=== PATIENT | female | born 1960 | race Caucasian/White ===

== ENCOUNTER 2016-09-22 14:05 | Emergency (ER) | payer MEDICARE, MEDICAID ==
[2016-09-22] MEDS ORDERED: Ibuprofen TAB* 400 MG PO ONE (15:38)
[2016-09-22] MEDS ORDERED: Ketorolac INJ* 60 MG/2 ML VIAL IM ONE (15:43)
--- NOTE | 2016-09-22 16:39 | RAD ---
INDICATION: Trauma, low back pain. COMPARISON: There are no prior studies available for comparison. TECHNIQUE: 5 views of the lumbar spine were obtained including lateral, oblique, AP and a coned-down lateral view of the lumbar sacral junction. FINDINGS: There is a mild lumbar scoliosis convex toward the left side. The vertebra are otherwise in normal alignment. No fracture is seen. There is vacuum disc phenomena present at multiple levels. There is moderate to severe disc space narrowing and endplate spurring at all lumbar levels consistent with moderate to severe diffuse degenerative disc disease. IMPRESSION: 1. NO EVIDENCE FOR FRACTURE. 2. MULTILEVEL MODERATE TO SEVERE DIFFUSE DEGENERATIVE DISC DISEASE.
--- NOTE | 2016-09-22 16:41 | RAD ---
INDICATION: Sacrococcygeal injury. COMPARISON: There are no prior studies available for comparison. TECHNIQUE: 3 views of the sacrococcygeal spine were obtained. FINDINGS: The vertebra are in normal alignment. There is a faint radiolucent line extending through the lower segments of the coccyx on the lateral image possibly representing a nondisplaced fracture. IMPRESSION: POSSIBLE NONDISPLACED FRACTURE OF THE COCCYX.
--- NOTE | 2016-09-22 16:45 | RAD ---
INDICATION: Trauma, neck pain. COMPARISON: There are no prior studies available for comparison. TECHNIQUE: 3 views of the cervical spine were obtained including lateral, AP and open-mouth odontoid views. FINDINGS: The exam is limited. On the lateral images the C5, C6 and C7 vertebra project over the shoulders. The vertebra are in normal alignment. No prevertebral soft tissue swelling or fracture is seen. There is moderate degenerative disc disease at the C5-C6 level. IMPRESSION: LIMITED STUDY THE C5-C7 VERTEBRA ARE PARTIALLY OBSCURED BY THE PATIENT'S SHOULDERS. IF THIS IS AN AREA OF INTEREST CONSIDER CT IMAGING OF THE CERVICAL SPINE. NO FRACTURE IS SEEN.
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
[2016-09-22 17:45] VITALS: BP 200/106
== END 2016-09-22 17:43 | disposition home or self-care (01) ==
LOC: ED 14:05
DX: S39.012A Strain of muscle, fascia and tendon of lower back, initial encounter (principal); S32.2XXA Fracture of coccyx, initial encounter for closed fracture; Z88.1 Allergy status to other antibiotic agents; Z88.5 Allergy status to narcotic agent; Z88.0 Allergy status to penicillin; W01.0XXA Fall on same level from slipping, tripping and stumbling without subsequent striking against object, initial encounter; Y92.510 Bank as the place of occurrence of the external cause
CPT/HCPCS: 72040; 72110; 72220; 96372; 99282; J1885

== ENCOUNTER 2017-05-21 18:10 | Emergency (ER) | payer MEDICARE, MEDICAID ==
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
== END 2017-05-21 20:16 | disposition home or self-care (01) ==
LOC: UCEAST 18:10
DX: H10.9 Unspecified conjunctivitis (principal); Z88.8 Allergy status to other drugs, medicaments and biological substances; Z88.5 Allergy status to narcotic agent; I10 Essential (primary) hypertension; Z87.891 Personal history of nicotine dependence; Z88.1 Allergy status to other antibiotic agents; Z88.6 Allergy status to analgesic agent
CPT/HCPCS: 99212; G0463

== ENCOUNTER 2017-07-16 12:51 | Emergency (ER) | payer MEDICARE, MEDICAID ==
[2017-07-16 15:01] VITALS: BP 114/82
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
== END 2017-07-16 15:56 | disposition home or self-care (01) ==
LOC: UCEAST 12:51
DX: J20.9 Acute bronchitis, unspecified (principal); I10 Essential (primary) hypertension; Z88.6 Allergy status to analgesic agent; Z88.1 Allergy status to other antibiotic agents; Z88.5 Allergy status to narcotic agent; Z88.8 Allergy status to other drugs, medicaments and biological substances; Z91.048 Other nonmedicinal substance allergy status; Z87.891 Personal history of nicotine dependence
CPT/HCPCS: 87502; 99212; G0463

== ENCOUNTER 2017-07-29 20:59 | Emergency (ER) | payer MEDICARE, MEDICAID ==
[2017-07-30] MEDS ORDERED: Tetan/Diph/Pertus SYR(Tdap)* 0.5 ML SYR(BOOSTRIX) use SYR IM ONE (00:10)
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
[2017-07-30 01:51] VITALS: BP 136/78
== END 2017-07-30 00:45 | disposition home or self-care (01) ==
LOC: ED 20:59
DX: S61.011A Laceration without foreign body of right thumb without damage to nail, initial encounter (principal); W26.8XXA Contact with other sharp object(s), not elsewhere classified, initial encounter; Y93.G3 Activity, cooking and baking; Y92.9 Unspecified place or not applicable; Z23 Encounter for immunization; Z87.891 Personal history of nicotine dependence; Z88.3 Allergy status to other anti-infective agents; Z88.5 Allergy status to narcotic agent; Z88.8 Allergy status to other drugs, medicaments and biological substances
CPT/HCPCS: 90471; 90715; 99282

== ENCOUNTER 2018-08-15 15:39 | Emergency (ER) | payer MEDICARE, MEDICAID ==
[2018-08-15 16:12] VITALS: BP 189/91
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
== END 2018-08-15 17:03 | disposition home or self-care (01) ==
LOC: UCEAST 15:39
DX: R42 Dizziness and giddiness (principal); H65.92 Unspecified nonsuppurative otitis media, left ear; I10 Essential (primary) hypertension; Z88.6 Allergy status to analgesic agent; Z88.1 Allergy status to other antibiotic agents; Z91.030 Bee allergy status; Z88.5 Allergy status to narcotic agent; Z88.8 Allergy status to other drugs, medicaments and biological substances; Z91.09 Other allergy status, other than to drugs and biological substances; Z87.891 Personal history of nicotine dependence
CPT/HCPCS: 99212; G0463

== ENCOUNTER 2018-10-17 17:06 | Emergency (ER) | payer MEDICARE, MEDICAID ==
[2018-10-17 17:19] VITALS: BP 157/97
[2018-10-17] MEDS ORDERED: Fluorescein Sodium TOPICAL* 1 MG TEST STRIP OPHTHALMIC ONE (18:20)
[2018-10-17] MEDS ORDERED: Tetracaine 0.5% OPTH.SOL 4 ML* 1 DROP BTL BOTH EYES ONE (18:20)
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
== END 2018-10-17 19:10 | disposition home or self-care (01) ==
LOC: UCEAST 17:06
DX: H10.33 Unspecified acute conjunctivitis, bilateral (principal); B37.2 Candidiasis of skin and nail; I10 Essential (primary) hypertension; F32.9 Major depressive disorder, single episode, unspecified; Z88.1 Allergy status to other antibiotic agents; Z91.030 Bee allergy status; Z88.5 Allergy status to narcotic agent; Z88.8 Allergy status to other drugs, medicaments and biological substances; Z91.048 Other nonmedicinal substance allergy status; Z87.891 Personal history of nicotine dependence
CPT/HCPCS: 99213; A9270-GY; G0463

== ENCOUNTER 2018-10-28 17:51 | Observation (INO) | payer MEDICARE, MEDICAID ==
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
[2018-10-28] MEDS ORDERED: Furosemide IV* 10 MG/ML VIAL (40 MG) IV SLOW PU ONE (18:36)
[2018-10-28 18:50] LABS: ABS Basophils 0.1 10^3/ul (0-0.2); ABS Eosinophils 0.2 10^3/ul (0-0.6); ABS Lymphocytes 1.4 10^3/ul (1.0-4.8); ABS Monocytes 0.7 10^3/ul (0-0.8); ABS Neutrophils 5.2 10^3/ul (1.5-7.7); ABS Nucleated RBC 0 10^3/ul; Eosinophil % 3.2 %; Hematocrit 43 % (33-41); Hemoglobin 13.5 g/dL (12.0-16.0); Lymphocyte % 18.6 %; Mean Corpuscular HGB Conc 32 g/dL (31-36); Mean Corpuscular Hemoglobin 27 pg (27-31); Mean Corpuscular Volume 87 fL (80-97); Nucleated Red Blood Cells % 0.1; Platelet Count 250 10^3/uL (150-450); Red Blood Count 4.91 10^6 /uL (3.70-4.87); Red Cell Distribution Width 15 % (10.5-15); White Blood Count 7.7 10^3/uL (3.5-10.8)
[2018-10-28 19:04] LABS: ALT 21 U/L (7-52); AST 22 U/L (13-39); Albumin/Globulin Ratio 1.7 (1-3); Alkaline Phosphatase 100 U/L (34-104); Anion Gap 5 mmol/L (2-11); BUN/Creatinine Ratio 22.2 (8-20); Blood Urea Nitrogen 16 mg/dL (6-24); CO2 Carbon Dioxide 36 mmol/L (22-32); Calcium 9.2 mg/dL (8.6-10.3); Chloride 104 mmol/L (101-111); EGFR African American 101.4 (>60); EGFR Non-African American 83.8 (>60); Globulin 2.3 g/dL (2-4); Glucose 130 mg/dL (70-100); Potassium 3.6 mmol/L (3.5-5.0); Sodium 145 mmol/L (135-145); Total Protein 6.3 g/dL (6.4-8.9)
[2018-10-28 19:19] LABS: Activated Partial Thrombo Time 29.9 seconds (26.0-36.3); INR 1.27 (0.82-1.09)
[2018-10-28] MEDS ORDERED: hydrALAZINE IV* 20 MG/ML VIAL IV SLOW PU ONE (19:30)
[2018-10-28] MEDS ORDERED: Albuterol 2.5 MG/3 ML NEB.SOL* (0.083%) INH ONE (19:41)
[2018-10-28] MEDS ORDERED: methylPREDNISolone 125 MG* 2 ML VIAL IV ONE (19:41)
[2018-10-28] MEDS ORDERED: Furosemide IV* 10 MG/ML VIAL (40 MG) IV ONE (19:46)
[2018-10-28] MEDS ORDERED: Iodixanol* (CONTRAST) 320 MG/ML 100 ML SDV IV ONE (20:02)
[2018-10-28 20:41] LABS: C Reactive Protein 11.21 mg/L (<8.01)
[2018-10-28 21:11] LABS: Troponin I 0.01 ng/mL (<0.04)
[2018-10-28] MEDS ORDERED: Metoprolol Succinate XL TAB* 200 MG TAB.XL PO ONE (22:06)
[2018-10-28] MEDS ORDERED: Metoprolol Succinate XL TAB* 100 MG PO ONE (22:15)
[2018-10-28] MEDS ORDERED: Al Hydrox/Mg Hydrox/Simet LIQ* 30 ML UDC PO PRN (23:06)
[2018-10-28] MEDS ORDERED: Acetaminophen TAB* 325 MG PO PRN (23:06)
[2018-10-28] MEDS ORDERED: Albuterol 2.5 MG/3 ML NEB.SOL* (0.083%) INH PRN (23:06)
[2018-10-28] MEDS ORDERED: Senna TAB PO PRN (23:06)
[2018-10-28] MEDS ORDERED: Ondansetron INJ* 2 MG/ML VIAL IV PRN (23:06)
[2018-10-28] MEDS ORDERED: Docusate CAP* 100 MG PO PRN (23:06)
[2018-10-28] MEDS ORDERED: Ondansetron TAB* 4 MG PO PRN (23:09)
[2018-10-28] MEDS ORDERED: tiZANidine TAB* 2 MG PO PRN (23:09)
[2018-10-28] MEDS ORDERED: HYDROcodone/ACETAMIN 5-325 MG* 1 TAB PO PRN (23:09)
[2018-10-28] MEDS ORDERED: Cetirizine* 10 MG TAB PO PRN (23:12)
[2018-10-28] MEDS ORDERED: Albuterol HFA INHALER* 8 gm MDI INH PRN (23:13)
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
[2018-10-29] MEDS ORDERED: hydrALAZINE IV* 20 MG/ML VIAL IV SLOW PU PRN (04:06)
[2018-10-29] MEDS: Heparin VIAL(*) 5000 UNITS/ML VIAL (FIVE THOUSAND) SUBCUT SCH ×3 (04:20→22:13)
[2018-10-29 07:05] LABS: BUN/Creatinine Ratio 20.6 (8-20); Calcium 9.4 mg/dL (8.6-10.3); EGFR African American 108.3 (>60); EGFR Non-African American 89.5 (>60); Magnesium 2.1 mg/dL (1.9-2.7); Potassium 3.6 mmol/L (3.5-5.0)
[2018-10-29] MEDS: Mometasone/Formoter 200/5 MDI INH SCH ×2 (08:27→19:38)
[2018-10-29] MEDS: Losartan TAB* 25 MG PO SCH (08:42)
[2018-10-29] MEDS: Spironolactone TAB* 25 MG PO SCH (08:42)
[2018-10-29] MEDS: FLUoxetine CAP* 20 MG PO SCH (08:42)
[2018-10-29] MEDS: Sucralfate TAB* 1 GM PO SCH ×5 (08:42→22:13)
[2018-10-29] MEDS: Pantoprazole TAB * 40 MG TAB PO SCH (08:42)
[2018-10-29] MEDS: Metoprolol Tartrate TAB* 100 MG TAB PO SCH ×3 (08:43→22:13)
[2018-10-29] MEDS: predniSONE TAB* 20 MG PO SCH (08:43)
[2018-10-29] MEDS: Gabapentin CAP(*) 300 MG PO SCH ×3 (08:44→22:12)
[2018-10-29] MEDS: Diclofenac Sodium EC TAB* 25 MG PO SCH ×3 (08:45→22:12)
[2018-10-29] MEDS: Fluticasone NASAL SPRAY 50MCG* 16 gm SPRAY BTL BOTH NARES SCH (08:46)
[2018-10-29] MEDS: Clotrimazole 1% CREAM* 45 GM TOPICAL SCH ×3 (08:46→22:12)
[2018-10-29] MEDS: Mupirocin 2% CREAM* 15 GM TOPICAL SCH ×2 (08:47→22:25)
[2018-10-29] MEDS ORDERED: Clindamycin 1% TOPICAL(NF) SCH (09:00)
[2018-10-29] MEDS ORDERED: Econazole 1% CREAM (NF) 1 TUBE TOPICAL SCH (09:00)
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
[2018-10-29] MEDS ORDERED: Mometasone 220 MCG MDI INH SCH (18:00)
[2018-10-29] MEDS: Gabapentin CAP(*) 100 MG PO SCH ×2 (19:20→22:12)
[2018-10-29] MEDS: Amitriptyline TAB* 10 MG PO SCH ×2 (19:22→22:12)
--- NOTE | 2018-10-29 22:14 | PN ---
Subjective Date of Service: 10/29/18 Interval History: Pt admitted overnight due to hypoxia. Seems patient actually should be on home O2 always, but would only wear it at night but also broke her concentrator recently. Wishes to go home but discussed we need to have home O2 set up before discharge. Pt has close f/u with wound care in 2 days - she would like to defer cellulitis treatment to them as she thinks her legs appear better than before. Family History: Unchanged from Admission Social History: Unchanged from Admission Past Medical History: Unchanged from Admission Objective Active Medications: Acetaminophen (Tylenol Tab*) 650 mg PO Q4H PRN PRN Reason: FEVER/PAIN Hydrocodone Bitart/Acetaminophen ([place] 5-325 Tab*) 1 tab PO TID PRN PRN Reason: PAIN Al Hydrox/Mg Hydrox/Simethicone (Maalox Plus*) 30 ml PO Q6H PRN PRN Reason: INDIGESTION Albuterol (Ventolin 2.5 Mg/3 Ml Neb.Cherelle*) 2.5 mg INH [id number] AWAKE PRN PRN Reason: sob/wheezing Albuterol (Ventolin Hfa Inhaler*) 2 puff INH Q4H PRN PRN Reason: SOB/WHEEZING Amitriptyline HCl (Elavil Tab*) 30 mg PO BEDTIME [facility] Cetirizine HCl (Zyrtec*) 10 mg PO QPM PRN PRN Reason: ALLERGIES Clotrimazole (Clotrimazole 1%*) 1 applic TOPICAL BID [facility] Last Admin: 10/29/18 08:46 Dose: 1 applic Diclofenac Sodium (Voltaren Ec Tab*) 75 mg PO BID [facility] Last Admin: 10/29/18 08:45 Dose: 75 mg Docusate Sodium (Colace Cap*) 100 mg PO BID PRN PRN Reason: CONSTIPATION Fluoxetine HCl (Prozac Cap*) 20 mg PO DAILY [facility] Last Admin: 10/29/18 08:42 Dose: 20 mg Fluticasone Propionate (Flonase Nasal [place] 50mcg*) 2 spray BOTH NARES DAILY [facility] Last Admin: 10/29/18 08:46 Dose: 2 spray Gabapentin (Neurontin Cap(*)) 200 mg PO BEDTIME [facility] Gabapentin (Neurontin Cap(*)) 300 mg PO BID [facility] Last Admin: 10/29/18 08:44 Dose: 300 mg Heparin Sodium (Porcine) (Heparin Vial(*)) 5,000 units SUBCUT Q8HR [facility] Last Admin: 10/29/18 12:55 Dose: Not Given Hydralazine HCl (Apresoline Iv*) 10 mg IV SLOW PU Q6H PRN PRN Reason: BLOOD PRESSURE Last Admin: 10/29/18 04:20 Dose: 10 mg Losartan Potassium (Cozaar Tab*) 100 mg PO DAILY [facility] Last Admin: 10/29/18 08:42 Dose: 100 mg Metoprolol Tartrate (Lopressor Tab*) 200 mg PO BID [facility] Last Admin: 10/29/18 08:43 Dose: 200 mg Mometasone Furoate/Formoterol Fumar (Dulera 200/5 Mdi*) 2 puff INH BID [facility] Last Admin: 10/29/18 19:38 Dose: Not Given Mupirocin (Bactroban 2% Cream*) 1 applic TOPICAL BID [facility] Last Admin: 10/29/18 08:47 Dose: Not Given Ondansetron HCl (Zofran Inj*) 4 mg IV Q4H PRN PRN Reason: NAUSEA/VOMITING Ondansetron HCl (Zofran Tab*) 8 mg PO Q8H PRN PRN Reason: NAUSEA Pantoprazole Sodium (Protonix Tab*) 40 mg PO DAILY [facility] Last Admin: 10/29/18 08:42 Dose: 40 mg Prednisone (Deltasone Tab*) 40 mg PO DAILY [facility] Last Admin: 10/29/18 08:43 Dose: 40 mg Senna (Senokot Tab*) 1 tab PO BID PRN PRN Reason: CONSTIPATION Spironolactone (Aldactone Tab*) 25 mg PO DAILY [facility] Last Admin: 10/29/18 08:42 Dose: 25 mg Sucralfate (Carafate*) 1 gm PO QID [facility] Last Admin: 10/29/18 16:38 Dose: 1 gm Tizanidine HCl (Zanaflex Tab*) 2 mg PO BEDTIME PRN PRN Reason: SPASMS Vital Signs - 8 hr 10/29/18 10/29/18 10/29/18 15:16 19:15 19:45 Temperature 98.4 F 98.7 F Pulse Rate 73 74 Respiratory 16 16 16 Rate Blood Pressure 170/77 151/79 (mmHg) O2 Sat by Pulse 93 96 Oximetry Oxygen Devices in Use Now: Nasal Cannula Appearance: well appearing obese woman in NAD, no increased WOB Ears/Nose/Mouth/Throat: Clear Oropharnyx, Mucous Membranes Moist Neck: No Thyroid Enlargement, Masses Cardiovascular: RRR Abdominal: NL Sounds; No Tenderness; No Distention Extremities: - - b/l LE edema with circumferential erythema and some scabs, not hot or tender; some skin breakdown of posterior RLE which previously had [place] Result Diagrams: 10/28/18 01:30 10/29/18 06:36 Assess/Plan/Problems-Billing Assessment: 58W with morbid obesity, asthma/copd, JOSE LUIS, on O2 at home, who presents with [place]. Found with hypoxia and admitted for supplemental O2 and possible COPD/ asthma exacerbation. Now seems more likely that pt at baseline and needs home O2 to be set up again given that her home device recently broke. - Patient Problems (1) COPD exacerbation Comment: continue prednisone burst and nebs will need home O2 rearranged (2) JOSE LUIS (obstructive sleep apnea) Comment: cannot tolerate CPAP (3) HTN (hypertension) Comment: cont home metoprolol, spironolactone, losartan
[2018-10-30] MEDS: Heparin VIAL(*) 5000 UNITS/ML VIAL (FIVE THOUSAND) SUBCUT SCH ×2 (04:23→14:44)
[2018-10-30] MEDS: Mometasone/Formoter 200/5 MDI INH SCH ×2 (08:56→19:52)
[2018-10-30] MEDS: predniSONE TAB* 20 MG PO SCH (09:39)
[2018-10-30] MEDS: Losartan TAB* 25 MG PO SCH (09:39)
[2018-10-30] MEDS: Gabapentin CAP(*) 300 MG PO SCH (09:39)
[2018-10-30] MEDS: Spironolactone TAB* 25 MG PO SCH (09:40)
[2018-10-30] MEDS: Sucralfate TAB* 1 GM PO SCH (09:40)
[2018-10-30] MEDS: FLUoxetine CAP* 20 MG PO SCH (09:40)
[2018-10-30] MEDS: Metoprolol Tartrate TAB* 100 MG TAB PO SCH (09:40)
[2018-10-30] MEDS: Diclofenac Sodium EC TAB* 25 MG PO SCH (09:41)
[2018-10-30] MEDS: Pantoprazole TAB * 40 MG TAB PO SCH (09:41)
[2018-10-30] MEDS: Fluticasone NASAL SPRAY 50MCG* 16 gm SPRAY BTL BOTH NARES SCH (09:41)
[2018-10-30] MEDS: Clotrimazole 1% CREAM* 45 GM TOPICAL SCH (09:46)
[2018-10-30] MEDS ORDERED: Sucralfate TAB* 1 GM PO SCH (16:00)
[2018-10-30 16:13] VITALS: BP 142/85
[2018-10-30] MEDS: Mupirocin 2% CREAM* 15 GM TOPICAL SCH (18:19)
--- NOTE | 2018-10-31 00:43 | DS ---
CC: Danuta Walker MD* DISCHARGE SUMMARY: DATE OF ADMISSION: 10/28/18 DATE OF DISCHARGE: 10/30/18 PRIMARY CARE PHYSICIAN: Danuta Walker MD. Wound care and [facility] Home Visit Wound Care. DISPOSITION: To home. CONDITION: Improved. PRIMARY DIAGNOSIS: Chronic obstructive pulmonary disease exacerbation. SECONDARY DIAGNOSES: 1. Asthma. 2. Obstructive sleep apnea, unable to tolerate continuous positive airway pressure. 3. Hypertension. 4. Seasonal allergies. 5. Chronic pain. 6. Depression. 7. Degenerative disc disease. 8. Lower extremity edema with wounds after knox. 9. Fibromyalgia. CONSULTS: Wound Care. DISCHARGE MEDICATIONS: 1. Prednisone 40 mg daily for 2 more days. 2. Albuterol 2 puffs every 4 hours as needed for shortness of breath. 3. Amitriptyline 30 mg nightly. 4. Cetirizine 10 mg nightly. 5. Diclofenac 75 mg p.o. twice a day as needed for pain. 6. Docusate 100 mg twice a day as needed for constipation. 7. Fluoxetine 20 mg daily. 8. Flonase nasal spray 2 sprays daily. 9. Gabapentin 200 mg t.i.d. 10. Spironolactone 25 mg p.o. daily. 11. Sucralfate 1 g p.o. q.i.d. 12. Telmisartan 80 mg daily. 13. Hydroxyzine 25 mg p.o. every 6 hours as needed for anxiety. 14. Advair 1 puff inhaled twice a day. 15. Metoprolol tartrate 200 mg b.i.d. 16. [place] 5/325 1 tab 3 times a day as needed for pain. HISTORY OF PRESENT ILLNESS: A 58-year-old woman with morbid obesity, asthma/ COPD with smoking history, not active, always stay on home nocturnal O2 unable to tolerate CPAP who presents to the emergency room with worsening abdominal distention with constipation. She states this has been a progressive issue over the last few weeks and that it is related to her irritable bowel syndrome with predominant constipation features and she feels that this is causing her to be more short of breath. She saw her PCP on the morning of presentation and her oxygen saturation was 84, so she was sent to the emergency room for further evaluation. The patient denies chest pain or cough and she gets short of breath when she exerts herself which is at baseline. She has had no recent weight changes. She has chronic lower extremity swelling with a chronic wound on the back of her right leg that she sees a wound nurse for and she has an Unna boot. She denies upper respiratory symptoms. HOSPITAL COURSE: It was noted that her lowest O2 sat in the emergency room was 88%, but after evaluation and plan for discharge by the ER, she was noted to have oxygen saturation reduce to the lower 80s. So, she was admitted for observation and supplemental oxygen. In the ER, she also was given neb treatment, Lasix IV 40 mg, hydralazine, Solu-Medrol and Toprol 200 mg. The patient states she has issues with white-coat hypertension. She also notes that she has not been adherent to her home oxygenation, so it is thought that it was likely that the patient had needed home O2 at baseline and that this hypoxia observed in the emergency room was not new for her. She states that her home oxygen concentrator is broken, so she remained admitted until these services could be reinstituted at home. She was also seen by Wound Care and there was concern for cellulitis, although the patient did not report tenderness or increasing erythema, and she preferred to follow up the possibility of infection with her wound nurse who knows her best and she noted that she has an appointment with visiting wound nurse for the day after discharge. The patient's constipation also improved while admitted to the hospital. On the day of discharge, she reports that she is anxiously awaiting her discharge, so that she can return home. She states that she is at her baseline, feels well, denies 10- point review of systems. PHYSICAL EXAMINATION: She is afebrile, heart rates in the 70s, blood pressure is 142/85, respiratory rate 12, oxygen saturation 96% on 3 L. In general, well - appearing woman, in no acute distress, picking out items from her lunch menu, breathing comfortably. Neck: Unable to appreciate JVD given body habitus. Cardiovascular: Regular rate and rhythm. No murmurs, gallops, or rubs. Lungs : Clear to auscultation bilaterally. Abdomen: Soft, nontender, nondistended. Extremities: With bilateral 1+ pitting edema to mid chins with bilateral circumferential erythema with scabbing. No pus or fluctuance and no tenderness or increased temperature bilaterally. PERTINENT STUDIES AND LABS: Chest x-ray; marked cardiomegaly, mild interstitial prominence may represent vascular congestion. Chest, abdomen and pelvis CTA: With minimum bibasilar atelectatic change or scarring. Lungs and pleural spaces are otherwise clear. Mild mediastinal lymphadenopathy and cardiomegaly without visible acute pulmonary embolism, but limited evaluation of subsegmental branches of the pulmonary arteries because of respiratory motion artifact. No aortic dissection. Noted an incompletely characterized left adrenal mass, measuring 3.3 x 2.3 cm. Nonobstructive left nephrolithiasis including a 5 mm calculus in the left renal collecting system and a 5 mm calculus in the left renal pelvis. There is colonic diverticulosis without evidence for acute diverticulitis. Lower extremity venous Doppler study limited exam due to large body habitus and magnitude of lower extremity edema without gross evidence for right or left lower extremity DVT through the popliteal veins. There was a 5.1 x 2.4 x 0.8 cm left popliteal cyst. DISCHARGE PLAN: The patient is to continue all her home medications as before with addition of 2 additional days of prednisone for possible COPD asthma exacerbation. She is to follow up closely with her primary care physician also with her wound care visiting nurse. She is to resume a healthy diet low in processed foods and a level of activity as tolerated. The patient is to follow up noted CT abdomen, pelvis, chest findings, notably lymphadenopathy and adrenal mass with her primary care physician. She is to remain on home oxygen with recording of her measured oxygen saturations to manage this with her PCP and likely will need referral to postdoctoral research fellow. TIME SPENT: Approximately 60 minutes spent on discharge of this patient, more than half of which was spent with care coordination at bedside for interview and exam. [id number]/[facility] #: [id number] LISE
== END 2018-10-30 20:30 | disposition home or self-care (01) ==
LOC: ED 17:51 → MED 10-29 00:26
PROVIDERS: ADMIT Pediatrics; ATTEND Internal Medicine
DX: J44.1 Chronic obstructive pulmonary disease with (acute) exacerbation (principal); J45.909 Unspecified asthma, uncomplicated; G47.33 Obstructive sleep apnea (adult) (pediatric); I10 Essential (primary) hypertension; G89.29 Other chronic pain; F32.9 Major depressive disorder, single episode, unspecified; M51.34 Other intervertebral disc degeneration, thoracic region; R60.0 Localized edema; M79.7 Fibromyalgia; Z79.899 Other long term (current) drug therapy; E66.01 Morbid (severe) obesity due to excess calories; Z87.891 Personal history of nicotine dependence; K58.9 Irritable bowel syndrome, unspecified; Z68.43 Body mass index [BMI] 50.0-59.9, adult; Z88.6 Allergy status to analgesic agent
CPT/HCPCS: 36415; 71045; 71275; 74177; 80048; 80053; 82803; 83605; 83735; 83880; 84484; 85025; 85379; 85610; 85730; 86140; 93005; 93970; 94640; 96374; 96375; 96376; 99284; A9270-GY; G0378; J0360; J1940; J2930; J7512; Q9967

== ENCOUNTER 2020-08-24 05:35 | Observation (INO) ==
[2020-08-24] MEDS ORDERED: NS 0.9% 1000 ml BAG 1,000 ML IV ONE ×2 (06:02→08:03)
[2020-08-24] MEDS ORDERED: Prochlorperazine 5 mg/ml 2 ml VIAL (10 mg) IV ONE (06:02)
[2020-08-24 07:11] LABS: ABS Lymphocytes 0.8 10^3/ul (1.0-4.8); ABS Monocytes 0.2 10^3/ul (0-0.8); ABS Neutrophils 7.1 10^3/ul (1.5-7.7); Eosinophil % 0.1 %; Hematocrit 43 % (35-47); Hemoglobin 14.2 g/dL (12.0-16.0); Lymphocyte % 9.4 %; Mean Corpuscular HGB Conc 33 g/dL (31-36); Mean Corpuscular Hemoglobin 31 pg (27-31); Mean Corpuscular Volume 93 fL (80-97); Platelet Count 268 10^3/uL (150-450); Red Blood Count 4.58 10^6 /uL (3.70-4.87); Red Cell Distribution Width 14 % (10-15)
[2020-08-24 07:23] LABS: Albumin 4.4 g/dL (3.2-5.2); Calcium 10.2 mg/dL (8.6-10.3); Potassium 4.1 mmol/L (3.5-5.0); Total Bilirubin 0.7 mg/dL (0.2-1.0)
[2020-08-24 07:29] LABS: Albumin/Globulin Ratio 1.6 (1-3); BUN/Creatinine Ratio 29.5 (8-20); C Reactive Protein 2.72 mg/L (<8.01); EGFR African American 60.5 (>60); Globulin 2.8 g/dL (2-4); Total Protein 7.2 g/dL (6.4-8.9); Troponin I 0.01 ng/mL (<0.03)
[2020-08-24] MEDS ORDERED: Iodixanol (CONTRAST) 320 MG/ML 100 ML SDV IV ONE (07:42)
[2020-08-24] MEDS ORDERED: Piperacillin/Tazobac ADVAN 3.375 GM in NS 0.9% 100 ml BAG 100 ML IV ONE (07:56)
[2020-08-24] MEDS ORDERED: NS 0.9% IV ONE (08:15)
[2020-08-24 09:51] LABS: Urine Appearance Clear; Urine Bilirubin Negative (Negative); Urine Blood Negative (Negative); Urine Color Yellow; Urine Glucose 1+(50 mg/dL) (Negative); Urine Ketones Trace (Negative); Urine Nitrite Negative (Negative); Urine Protein 1+(30 mg/dL) (Negative); Urine Urobilinogen Negative (Negative)
[2020-08-24 09:54] LABS: Urine Bacteria Absent (Absent); Urine Red Blood Cell 1+(3-5/hpf) (Absent); Urine Squamous Epithelial Cell Present (Absent); Urine White Blood Cell Absent (Absent)
[2020-08-24] MEDS ORDERED: Ondansetron 4 mg VIAL 2 MG/ML 2 ml VIAL IV PRN (11:00)
[2020-08-24] MEDS ORDERED: cefTRIAXone 1 gm/50 mL NS BAG 1 GM/50 ML BAG IVPB SCH (11:00)
[2020-08-24] MEDS ORDERED: Prochlorperazine 5 mg/ml 2 ml VIAL (10 mg) IV PRN (11:06)
[2020-08-24] MEDS ORDERED: Albuterol HFA INHALER 8 gm MDI INH PRN (11:07)
[2020-08-24] MEDS: Metoprolol Succinate XL 200 mg TAB PO SCH ×2 (11:52→20:32)
[2020-08-24] MEDS: cefTRIAXone 1 gm/50 mL NS BAG 1 GM/50 ML BAG IVPB SCH (11:53)
[2020-08-24] MEDS: metroNIDAZOLE IV 500 MG/100ML 500 MG/100 ML BAG IVPB SCH ×2 (11:59→20:32)
[2020-08-24] MEDS ORDERED: Lactated Ringers 1000 ml BAG 1,000 ML IV SCH (12:00)
[2020-08-24] MEDS: Enoxaparin 40 MG/0.4 ML SYR SUBCUT SCH ×2 (13:59→14:05)
[2020-08-24] MEDS: HYDROcodone/ACETAMIN 5/325 mg TAB PO SCH ×2 (15:31→20:32)
[2020-08-25] MEDS ORDERED: Lactated Ringers 1000 ml BAG 1,000 ML IV ONE (00:11)
[2020-08-25 03:42] LABS: ABS Basophils 0.1 10^3/ul (0-0.2); ABS Eosinophils 0.1 10^3/ul (0-0.6); ABS Lymphocytes 1.7 10^3/ul (1.0-4.8); ABS Monocytes 1.1 10^3/ul (0-0.8); ABS Neutrophils 6.7 10^3/ul (1.5-7.7); Eosinophil % 0.6 %; Hematocrit 37 % (35-47); Hemoglobin 12.3 g/dL (12.0-16.0); Lymphocyte % 17.8 %; Mean Corpuscular HGB Conc 33 g/dL (31-36); Mean Corpuscular Hemoglobin 31 pg (27-31); Mean Corpuscular Volume 94 fL (80-97); Mean Platelet Volume 7.3 fL (7.4-10.4); Platelet Count 223 10^3/uL (150-450); Red Blood Count 3.95 10^6 /uL (3.70-4.87); Red Cell Distribution Width 15 % (10-15); White Blood Count 9.6 10^3/uL (3.5-10.8)
[2020-08-25] MEDS: metroNIDAZOLE IV 500 MG/100ML 500 MG/100 ML BAG IVPB SCH ×2 (04:04→11:29)
[2020-08-25 04:05] LABS: Albumin 3.6 g/dL (3.2-5.2); Albumin/Globulin Ratio 1.6 (1-3); BUN/Creatinine Ratio 25.9 (8-20); Calcium 9.2 mg/dL (8.6-10.3); EGFR African American 60.5 (>60); Globulin 2.3 g/dL (2-4); Magnesium 1.9 mg/dL (1.9-2.7); Potassium 4.2 mmol/L (3.5-5.0); Total Bilirubin 0.6 mg/dL (0.2-1.0); Total Protein 5.9 g/dL (6.4-8.9)
[2020-08-25] MEDS: HYDROcodone/ACETAMIN 5/325 mg TAB PO SCH ×2 (08:42→13:12)
[2020-08-25] MEDS: Metoprolol Succinate XL 200 mg TAB PO SCH (08:43)
[2020-08-25] MEDS ORDERED: SPIRIVA Respimat (tiotropium) 2.5 mcg/inh Inhaler INH SCH (09:00)
[2020-08-25] MEDS: Enoxaparin 40 MG/0.4 ML SYR SUBCUT SCH (10:57)
[2020-08-25] MEDS: cefTRIAXone 1 gm/50 mL NS BAG 1 GM/50 ML BAG IVPB SCH (13:06)
[2020-08-25 14:10] VITALS: BP 117/62
== END 2020-08-25 15:00 | disposition home or self-care (01) ==
LOC: ED 05:35 → MED 05:35 → MEDTELE 08-25 14:03
PROVIDERS: ADMIT Internal Medicine; ATTEND Internal Medicine

== ENCOUNTER 2021-06-07 06:31 | Inpatient (IN) ==
[2021-06-07] MEDS ORDERED: Al Hydrox/Mg Hydrox/Simet LIQ 30 ML UDC PO ONE (07:08)
[2021-06-07] MEDS ORDERED: Prochlorperazine 5 mg/ml 2 ml VIAL (10 mg) IM ONE (07:13)
[2021-06-07] MEDS ORDERED: Lactated Ringers 1000 ml BAG 1,000 ML IV ONE ×2 (07:14→21:00)
[2021-06-07 08:03] LABS: ABS Lymphocytes 0.7 10^3/ul (1.0-4.8); ABS Monocytes 0.2 10^3/ul (0-0.8); ABS Neutrophils 8.5 10^3/ul (1.5-7.7); Eosinophil % 0.1 %; Hematocrit 39 % (35-47); Hemoglobin 12.4 g/dL (12.0-16.0); Lymphocyte % 7.2 %; Mean Corpuscular HGB Conc 32 g/dL (31-36); Mean Corpuscular Hemoglobin 25 pg (27-31); Mean Corpuscular Volume 77 fL (80-97); Mean Platelet Volume 7.6 fL (7.4-10.4); Nucleated Red Blood Cells % 0.1; Platelet Count 417 10^3/uL (150-450); Red Blood Count 4.98 10^6 /uL (3.70-4.87); Red Cell Distribution Width 20 % (10-15); White Blood Count 9.4 10^3/uL (3.5-10.8)
[2021-06-07] MEDS: Prochlorperazine 5 mg/ml 2 ml VIAL (10 mg) IV PRN ×2 (08:11→14:56)
[2021-06-07 08:15] LABS: Albumin 3.9 g/dL (3.2-5.2); Albumin/Globulin Ratio 1.1 (1-3); C Reactive Protein 4.84 mg/L (<8.01); Calcium 10.2 mg/dL (8.6-10.3); Globulin 3.5 g/dL (2-4); Magnesium 1.8 mg/dL (1.9-2.7); Potassium 3.4 mmol/L (3.5-5.0); Total Bilirubin 0.7 mg/dL (0.2-1.0); Total Protein 7.4 g/dL (6.4-8.9); eGFR CKD-EPI 66.9 (>60)
[2021-06-07] MEDS ORDERED: Iohexol 300 (CONTRAST) 10 ML SDV IV ONE (08:49)
[2021-06-07 10:28] LABS: Urine Appearance Cloudy; Urine Bilirubin Negative (Negative); Urine Blood 2+ (Negative); Urine Color Yellow; Urine Glucose Negative (Negative); Urine Ketones Negative (Negative); Urine Nitrite Negative (Negative); Urine Protein 1+(30 mg/dL) (Negative); Urine Specific Gravity 1.018 (1.002-1.030); Urine Urobilinogen Negative (Negative)
[2021-06-07 10:31] LABS: Urine Amorphous Crystals Present (Absent); Urine Bacteria 1+ (Absent); Urine Red Blood Cell 3+(>10/hpf) (Absent); Urine Squamous Epithelial Cell Present (Absent); Urine White Blood Cell 3+(>20/hpf) (Absent)
[2021-06-07] MEDS ORDERED: cefTRIAXone 1 gm/50 mL NS BAG 1 GM/50 ML BAG IV ONE (11:11)
[2021-06-07 11:13] LABS: Troponin I 0.02 ng/mL (<0.03)
[2021-06-07] MEDS ORDERED: Ondansetron 4 mg VIAL 2 MG/ML 2 ml VIAL IV ONE (11:19)
[2021-06-07 11:39] LABS: PCO2 Arterial 40 mmHg (35-45); PO2 Arterial 107 mmHg (80-100)
[2021-06-07 12:11] LABS: Rapid COVID-19 Molecular Undetected (Undetected)
[2021-06-07] MEDS ORDERED: Iodixanol (CONTRAST) 320 MG/ML 100 ML SDV IV ONE (12:11)
[2021-06-07] MEDS ORDERED: Albuterol HFA INHALER 8 gm MDI INH PRN (20:09)
[2021-06-07] MEDS ORDERED: Vancomycin 1,500 MG in NS 0.9% 250 ml 250 ML IVPB ONE (20:43)
[2021-06-07] MEDS ORDERED: Vancomycin per Pharmacy 1 EA NOTE FOLLOW UP PRN (20:54)
[2021-06-07] MEDS ORDERED: Potassium Chlor 20 meq TAB.ER PO ONE (21:00)
[2021-06-07] MEDS ORDERED: Cefepime 2 GM IV - ED ONCE IV ONE (21:15)
[2021-06-07] MEDS: Enoxaparin 100 MG/ML SYR SUBCUT SCH (21:45)
[2021-06-08] MEDS: SPIRIVA Respimat (tiotropium) 2.5 mcg/inh Inhaler INH SCH (07:37)
[2021-06-08] MEDS: Cefepime 2 GM in Dextrose 2 GM/50 ML BAG IV SCH ×2 (07:51→16:38)
[2021-06-08] MEDS: Enoxaparin 100 MG/ML SYR SUBCUT SCH ×2 (07:51→21:54)
[2021-06-08] MEDS: Metoprolol Succinate XL 200 mg TAB PO SCH ×2 (07:56→21:54)
[2021-06-08] MEDS: Fluticasone NASAL SPRAY 50MCG 16 gm SPRAY BTL BOTH NARES SCH (09:38)
[2021-06-08] MEDS: Vancomycin 1000 MG in NS 0.9% 250 ML IVPB SCH ×2 (10:19→21:55)
[2021-06-08 11:44] LABS: Calcium 9.5 mg/dL (8.6-10.3); Potassium 3.9 mmol/L (3.5-5.0); eGFR CKD-EPI 84.1 (>60)
[2021-06-08 16:35] LABS: Magnesium 2.1 mg/dL (1.9-2.7)
[2021-06-09] MEDS: Cefepime 2 GM in Dextrose 2 GM/50 ML BAG IV SCH ×2 (01:47→07:35)
[2021-06-09 05:26] LABS: Hematocrit 35 % (35-47); Hemoglobin 11.3 g/dL (12.0-16.0); Mean Corpuscular HGB Conc 32 g/dL (31-36); Mean Corpuscular Hemoglobin 25 pg (27-31); Mean Corpuscular Volume 78 fL (80-97); Mean Platelet Volume 7.5 fL (7.4-10.4); Platelet Count 345 10^3/uL (150-450); Red Blood Count 4.48 10^6 /uL (3.70-4.87); Red Cell Distribution Width 20 % (10-15); White Blood Count 6.8 10^3/uL (3.5-10.8)
[2021-06-09 05:43] LABS: Calcium 9.6 mg/dL (8.6-10.3); Potassium 3.8 mmol/L (3.5-5.0); eGFR CKD-EPI 79.4 (>60)
[2021-06-09] MEDS: SPIRIVA Respimat (tiotropium) 2.5 mcg/inh Inhaler INH SCH (07:21)
[2021-06-09] MEDS: Metoprolol Succinate XL 200 mg TAB PO SCH ×2 (07:33→22:31)
[2021-06-09] MEDS: Enoxaparin 100 MG/ML SYR SUBCUT SCH ×2 (07:39→22:33)
[2021-06-09] MEDS: Fluticasone NASAL SPRAY 50MCG 16 gm SPRAY BTL BOTH NARES SCH (07:40)
[2021-06-09] MEDS ORDERED: Buffered Lidocaine 1% SYRIN 1 ml INTRADERM ONE (09:11)
[2021-06-09] MEDS ORDERED: diPHENhydraMINE IV 50 MG/ML 1 ml VIAL (BENADRYL) IV PRN (09:12)
[2021-06-09] MEDS ORDERED: Naloxone 0.4 mg VIAL 0.4 mg/ml 1 ml VIAL IV PRN (09:12)
[2021-06-09] MEDS ORDERED: HYDROmorphone 1 MG/1 ML SYRINGE IV PRN (09:12)
[2021-06-09] MEDS ORDERED: Prochlorperazine 5 mg/ml 2 ml VIAL (10 mg) IV PRN (09:12)
[2021-06-09] MEDS ORDERED: Vancomycin Trough Check NOTE FOLLOW UP ONE (09:30)
[2021-06-09] MEDS ORDERED: Lactated Ringers 1000 ml BAG 1,000 ML IV SCH (10:00)
[2021-06-09] MEDS ORDERED: fentaNYL 100 mcg/2 ml 50 MCG/ML VIAL ONE ×2 (12:05→16:51)
[2021-06-09] MEDS ORDERED: Propofol 10 MG/ML 20 ML BTL ONE ×2 (12:06→16:51)
[2021-06-09] MEDS ORDERED: Lidocaine 2% PF 5 ML VIAL ONE ×2 (12:06→16:51)
[2021-06-09] MEDS ORDERED: Dexamethasone IV 4 MG/ML VIAL 1 ml VIAL ONE (16:51)
[2021-06-09] MEDS ORDERED: Midazolam 2 mg/2 ml VIAL 1 mg/ml 2 ml VIAL (2 mg) ONE (16:51)
[2021-06-09] MEDS ORDERED: Ondansetron 4 mg VIAL 2 MG/ML 2 ml VIAL ONE (16:51)
[2021-06-09] MEDS ORDERED: Iohexol 180 (CONTRAST) 20 ML SDV IV ONE (17:00)
[2021-06-09] MEDS ORDERED: Cefepime 2 GM in Dextrose 2 GM/50 ML BAG IV SCH (20:00)
[2021-06-10 05:36] LABS: Calcium 9.4 mg/dL (8.6-10.3); Magnesium 1.9 mg/dL (1.9-2.7); Potassium 3.7 mmol/L (3.5-5.0); eGFR CKD-EPI 76.1 (>60)
[2021-06-10] MEDS: SPIRIVA Respimat (tiotropium) 2.5 mcg/inh Inhaler INH SCH (07:28)
[2021-06-10] MEDS ORDERED: cefTRIAXone 1 gm/50 mL NS BAG 1 GM/50 ML BAG IVPB SCH (08:00)
[2021-06-10] MEDS: Enoxaparin 100 MG/ML SYR SUBCUT SCH (08:10)
[2021-06-10] MEDS: Fluticasone NASAL SPRAY 50MCG 16 gm SPRAY BTL BOTH NARES SCH (08:12)
[2021-06-10] MEDS: Metoprolol Succinate XL 200 mg TAB PO SCH (08:21)
[2021-06-10 21:05] VITALS: BP 132/68
== END 2021-06-10 20:30 | disposition home or self-care (01) | DRG 720 ==
LOC: ED 06:31 → SUATTDRO 19:55 → EDHOLD 19:55 → MED 21:57
PROVIDERS: ADMIT Student in an Organized Health Care Education/Training Program; ATTEND Internal Medicine

== ENCOUNTER 2021-07-29 02:20 | Observation (INO) ==
[2021-07-29] MEDS ORDERED: NS 0.9% 1000 ml BAG 1,000 ML IV ONE (02:53)
[2021-07-29 03:19] LABS: ABS Basophils 0.1 10^3/ul (0-0.2); ABS Eosinophils 0.1 10^3/ul (0-0.6); ABS Lymphocytes 0.7 10^3/ul (1.0-4.8); ABS Monocytes 0.2 10^3/ul (0-0.8); ABS Neutrophils 7.6 10^3/ul (1.5-7.7); Eosinophil % 0.6 %; Hematocrit 38 % (35-47); Hemoglobin 12.4 g/dL (12.0-16.0); Lymphocyte % 8.2 %; Mean Corpuscular HGB Conc 33 g/dL (31-36); Mean Corpuscular Hemoglobin 26 pg (27-31); Mean Corpuscular Volume 81 fL (80-97); Mean Platelet Volume 7.5 fL (7.4-10.4); Nucleated Red Blood Cells % 0.1; Platelet Count 376 10^3/uL (150-450); Red Blood Count 4.73 10^6 /uL (3.70-4.87); Red Cell Distribution Width 16 % (10-15); White Blood Count 8.6 10^3/uL (3.5-10.8)
[2021-07-29 03:35] LABS: Albumin 4.2 g/dL (3.2-5.2); Albumin/Globulin Ratio 1.2 (1-3); Globulin 3.4 g/dL (2-4); Magnesium 1.8 mg/dL (1.9-2.7); Potassium 3.7 mmol/L (3.5-5.0); Total Bilirubin 0.8 mg/dL (0.2-1.0); Total Protein 7.6 g/dL (6.4-8.9); eGFR CKD-EPI 77.8 (>60)
[2021-07-29 03:36] LABS: Urine Appearance Cloudy; Urine Color Yellow; Urine Ketones Negative (Negative); Urine Urobilinogen Negative (Negative); Urine pH 9 (5-9)
[2021-07-29 03:37] LABS: Urine Bilirubin Negative (Negative); Urine Blood 2+ (Negative); Urine Glucose Negative (Negative); Urine Nitrite Negative (Negative); Urine Protein 1+(30 mg/dL) (Negative)
[2021-07-29 03:39] LABS: Urine Bacteria Absent (Absent); Urine Red Blood Cell 3+(>10/hpf) (Absent); Urine Squamous Epithelial Cell Present (Absent); Urine White Blood Cell 3+(>20/hpf) (Absent); Urine Yeast Present (Absent)
[2021-07-29] MEDS ORDERED: Ondansetron 4 mg VIAL 2 MG/ML 2 ml VIAL IV ONE (04:54)
[2021-07-29] MEDS ORDERED: Prochlorperazine 5 mg/ml 2 ml VIAL (10 mg) IV PRN (06:57)
[2021-07-29] MEDS ORDERED: Famotidine IV 10 MG/ML 2 ml VIAL (20 mg) IV SLOW PU ONE (08:36)
[2021-07-29] MEDS ORDERED: Albuterol HFA INHALER 8 gm MDI INH PRN (10:04)
[2021-07-29] MEDS ORDERED: Ondansetron 4 mg VIAL 2 MG/ML 2 ml VIAL IV PRN (11:32)
[2021-07-29] MEDS ORDERED: Prochlorperazine 5 mg/ml 2 ml VIAL (10 mg) IV ONE (11:34)
[2021-07-29] MEDS ORDERED: Magnesium Sulfate IV 1GM/100ML 1 GM/100 ML BAG IV ONE (14:22)
[2021-07-29] MEDS ORDERED: Lactated Ringers 1000 ml BAG 1,000 ML IV SCH (15:00)
[2021-07-29 18:03] LABS: TSH Ultra Thyroid Stim Horm 2.63 mcIU/mL (0.34-5.60)
[2021-07-29] MEDS: Metoprolol Succinate XL 200 mg TAB PO SCH (21:06)
[2021-07-30 08:16] LABS: ABS Basophils 0.1 10^3/ul (0-0.2); ABS Eosinophils 0.1 10^3/ul (0-0.6); ABS Lymphocytes 1.2 10^3/ul (1.0-4.8); ABS Monocytes 0.7 10^3/ul (0-0.8); ABS Neutrophils 5.7 10^3/ul (1.5-7.7); Eosinophil % 1.3 %; Hematocrit 37 % (35-47); Hemoglobin 11.9 g/dL (12.0-16.0); Lymphocyte % 15.2 %; Mean Corpuscular HGB Conc 33 g/dL (31-36); Mean Corpuscular Hemoglobin 27 pg (27-31); Mean Corpuscular Volume 82 fL (80-97); Mean Platelet Volume 7.3 fL (7.4-10.4); Nucleated Red Blood Cells % 0.1; Platelet Count 351 10^3/uL (150-450); Red Blood Count 4.44 10^6 /uL (3.70-4.87); Red Cell Distribution Width 16 % (10-15); White Blood Count 7.7 10^3/uL (3.5-10.8)
[2021-07-30] MEDS: SPIRIVA Respimat (tiotropium) 2.5 mcg/inh Inhaler INH SCH (08:17)
[2021-07-30 08:38] LABS: Blood Urea Nitrogen 20 mg/dL (6-24); CO2 Carbon Dioxide 31 mmol/L (22-32); Calcium 9.9 mg/dL (8.6-10.3); Chloride 102 mmol/L (101-111); Glucose 107 mg/dL (70-100); Magnesium 2.2 mg/dL (1.9-2.7); Sodium 139 mmol/L (135-145); eGFR CKD-EPI 59.8 (>60)
[2021-07-30] MEDS: Potassium Chlor 20 meq TAB.ER PO SCH (09:40)
[2021-07-30] MEDS: Fluticasone NASAL SPRAY 50MCG 16 gm SPRAY BTL BOTH NARES SCH (09:49)
[2021-07-30] MEDS: Metoprolol Succinate XL 200 mg TAB PO SCH ×2 (09:49→20:49)
[2021-07-30] MEDS: Mupirocin 2% OINT TUBE TOPICAL SCH (09:50)
[2021-07-30 10:14] LABS: Anion Gap 6 mmol/L (2-11)
[2021-07-30] MEDS ORDERED: Prochlorperazine 5 mg/ml 2 ml VIAL (10 mg) IV PRN (10:30)
[2021-07-30 14:02] LABS: Urine Appearance Turbid; Urine Color Amber
[2021-07-30 14:29] LABS: Urine Bacteria Absent (Absent); Urine Red Blood Cell 3+(>10/hpf) (Absent); Urine Squamous Epithelial Cell Present (Absent); Urine White Blood Cell 3+(>20/hpf) (Absent)
[2021-07-31 06:15] LABS: ABS Basophils 0.1 10^3/ul (0-0.2); ABS Eosinophils 0.3 10^3/ul (0-0.6); ABS Lymphocytes 1.6 10^3/ul (1.0-4.8); ABS Monocytes 0.8 10^3/ul (0-0.8); ABS Neutrophils 4.6 10^3/ul (1.5-7.7); Eosinophil % 4.1 %; Hematocrit 35 % (35-47); Hemoglobin 11.4 g/dL (12.0-16.0); Lymphocyte % 21.7 %; Mean Corpuscular HGB Conc 33 g/dL (31-36); Mean Corpuscular Hemoglobin 27 pg (27-31); Mean Corpuscular Volume 82 fL (80-97); Mean Platelet Volume 7.5 fL (7.4-10.4); Nucleated Red Blood Cells % 0.1; Platelet Count 335 10^3/uL (150-450); Red Blood Count 4.26 10^6 /uL (3.70-4.87); Red Cell Distribution Width 16 % (10-15); White Blood Count 7.4 10^3/uL (3.5-10.8)
[2021-07-31 06:32] LABS: Calcium 9.3 mg/dL (8.6-10.3); Potassium 3.7 mmol/L (3.5-5.0); eGFR CKD-EPI 59.8 (>60)
[2021-07-31] MEDS ORDERED: NS 0.9% 1000 ml BAG 1,000 ML IV SCH (07:15)
[2021-07-31] MEDS: Fluticasone NASAL SPRAY 50MCG 16 gm SPRAY BTL BOTH NARES SCH (07:54)
[2021-07-31] MEDS: Mupirocin 2% OINT TUBE TOPICAL SCH (07:54)
[2021-07-31] MEDS: Metoprolol Succinate XL 200 mg TAB PO SCH ×2 (07:55→22:11)
[2021-07-31] MEDS: Potassium Chlor 20 meq TAB.ER PO SCH (07:56)
[2021-07-31] MEDS: SPIRIVA Respimat (tiotropium) 2.5 mcg/inh Inhaler INH SCH (09:50)
[2021-07-31] MEDS: HYDROcodone/ACETAMIN 5/325 mg TAB PO PRN ×2 (18:08→22:10)
[2021-08-01 06:20] LABS: ABS Basophils 0.1 10^3/ul (0-0.2); ABS Eosinophils 0.3 10^3/ul (0-0.6); ABS Lymphocytes 1.4 10^3/ul (1.0-4.8); ABS Monocytes 0.7 10^3/ul (0-0.8); ABS Neutrophils 5.8 10^3/ul (1.5-7.7); Eosinophil % 4.1 %; Hematocrit 33 % (35-47); Hemoglobin 10.8 g/dL (12.0-16.0); Lymphocyte % 16.6 %; Mean Corpuscular HGB Conc 32 g/dL (31-36); Mean Corpuscular Hemoglobin 27 pg (27-31); Mean Corpuscular Volume 83 fL (80-97); Mean Platelet Volume 7.2 fL (7.4-10.4); Platelet Count 312 10^3/uL (150-450); Red Blood Count 4.02 10^6 /uL (3.70-4.87); Red Cell Distribution Width 16 % (10-15); White Blood Count 8.3 10^3/uL (3.5-10.8)
[2021-08-01 06:37] LABS: Calcium 9.1 mg/dL (8.6-10.3); Potassium 3.7 mmol/L (3.5-5.0); eGFR CKD-EPI 68.2 (>60)
[2021-08-01] MEDS: Fluticasone NASAL SPRAY 50MCG 16 gm SPRAY BTL BOTH NARES SCH (08:12)
[2021-08-01] MEDS: Metoprolol Succinate XL 200 mg TAB PO SCH ×2 (08:13→20:13)
[2021-08-01] MEDS: Mupirocin 2% OINT TUBE TOPICAL SCH (08:13)
[2021-08-01] MEDS: Potassium Chlor 20 meq TAB.ER PO SCH (08:14)
[2021-08-01] MEDS: SPIRIVA Respimat (tiotropium) 2.5 mcg/inh Inhaler INH SCH (10:30)
[2021-08-01] MEDS: HYDROcodone/ACETAMIN 5/325 mg TAB PO PRN ×2 (11:45→20:11)
[2021-08-01 20:06] VITALS: BP 133/76
== END 2021-08-01 20:30 | disposition home or self-care (01) ==
LOC: ED 02:20 → EDHOLD 02:20 → SUATTDRO 10:02 → SSU 13:21
PROVIDERS: ADMIT Internal Medicine; ATTEND Internal Medicine

== ENCOUNTER 2021-10-07 15:43 | Observation (INO) ==
[2021-10-07] MEDS ORDERED: Prochlorperazine 5 mg/ml 2 ml VIAL (10 mg) IV PRN (15:49)
[2021-10-07] MEDS ORDERED: NS 0.9% 1000 ml BAG 1,000 ML IV ONE (15:50)
[2021-10-07 16:41] LABS: ABS Lymphocytes 0.6 10^3/ul (1.0-4.8); ABS Monocytes 0.2 10^3/ul (0-0.8); ABS Neutrophils 7.4 10^3/ul (1.5-7.7); Hematocrit 43 % (35-47); Hemoglobin 14.2 g/dL (12.0-16.0); Lymphocyte % 7.7 %; Mean Corpuscular HGB Conc 33 g/dL (31-36); Mean Corpuscular Hemoglobin 27 pg (27-31); Mean Corpuscular Volume 81 fL (80-97); Mean Platelet Volume 7.7 fL (7.4-10.4); Platelet Count 379 10^3/uL (150-450); Red Blood Count 5.27 10^6 /uL (3.70-4.87); Red Cell Distribution Width 15 % (10-15); White Blood Count 8.3 10^3/uL (3.5-10.8)
[2021-10-07 16:57] LABS: Urine Appearance Cloudy; Urine Bilirubin Negative (Negative); Urine Blood 2+ (Negative); Urine Color Yellow; Urine Glucose Negative (Negative); Urine Ketones 1+ (Negative); Urine Nitrite Negative (Negative); Urine Protein 2+(100 mg/dL) (Negative); Urine Specific Gravity 1.014 (1.002-1.030); Urine Urobilinogen Negative (Negative)
[2021-10-07] MEDS ORDERED: NS 0.9% 1000 ml BAG 2,000 ML IV ONE (16:59)
[2021-10-07 17:01] LABS: Urine Bacteria Absent (Absent); Urine Red Blood Cell 3+(>10/hpf) (Absent); Urine Squamous Epithelial Cell Present (Absent); Urine White Blood Cell 3+(>20/hpf) (Absent)
[2021-10-07] MEDS ORDERED: Cefepime 1 GM in Dextrose 1 GM/50 ML BAG IV ONE (17:04)
[2021-10-07 17:49] LABS: ALT 12 U/L (7-52); AST 16 U/L (13-39); Albumin 4.7 g/dL (3.2-5.2); Albumin/Globulin Ratio 1.6 (1-3); Alkaline Phosphatase 100 U/L (35-149); Anion Gap 16 mmol/L (2-11); Blood Urea Nitrogen 16 mg/dL (6-24); C Reactive Protein 2.61 mg/L (<8.01); CO2 Carbon Dioxide 25 mmol/L (22-32); Calcium 10.9 mg/dL (8.6-10.3); Chloride 98 mmol/L (101-111); Globulin 2.9 g/dL (2-4); Glucose 122 mg/dL (70-100); Lipase < 10 U/L (11.0-82.0); Magnesium 1.8 mg/dL (1.9-2.7); Potassium 3.6 mmol/L (3.5-5.0); Sodium 139 mmol/L (135-145); Total Protein 7.6 g/dL (6.4-8.9); eGFR CKD-EPI 59.8 (>60)
[2021-10-07] MEDS ORDERED: Magnesium Sulfate IV 1GM/100ML 1 GM/100 ML BAG IV ONE (18:03)
[2021-10-07] MEDS ORDERED: Ondansetron 4 mg VIAL 2 MG/ML 2 ml VIAL IV ONE (20:22)
[2021-10-07] MEDS ORDERED: Albuterol 2.5mg/3 ml (0.083%) NEB.SOLN INH PRN (23:49)
[2021-10-08] MEDS: SPIRIVA Respimat (tiotropium) 2.5 mcg/inh Inhaler INH SCH (07:28)
[2021-10-08] MEDS: Metoprolol Succinate XL 200 mg TAB PO SCH ×2 (08:32→20:06)
[2021-10-08] MEDS: cefTRIAXone 1 gm/50 mL D5W 1 GM/50 ML BAG IV SCH (10:39)
[2021-10-09] MEDS: SPIRIVA Respimat (tiotropium) 2.5 mcg/inh Inhaler INH SCH (07:43)
[2021-10-09] MEDS ORDERED: Fluticasone NASAL SPRAY 50MCG 16 gm SPRAY BTL BOTH NARES SCH (09:00)
[2021-10-09] MEDS: cefTRIAXone 1 gm/50 mL D5W 1 GM/50 ML BAG IV SCH (09:32)
[2021-10-09] MEDS: Metoprolol Succinate XL 200 mg TAB PO SCH (09:32)
[2021-10-09 11:12] LABS: Calcium 9.1 mg/dL (8.6-10.3); Potassium 3.5 mmol/L (3.5-5.0); eGFR CKD-EPI 72.7 (>60)
[2021-10-09 19:46] VITALS: BP 93/47
== END 2021-10-09 21:00 | disposition home or self-care (01) ==
LOC: EDHOLD 15:43 → ED 15:43 → MED 10-08 02:22
PROVIDERS: ADMIT Internal Medicine; ATTEND Internal Medicine

== ENCOUNTER 2023-10-23 15:04 | Inpatient (IN) ==
[2023-10-23 16:36] LABS: ABS Basophils 0.1 10^3/uL (0.0-0.1); ABS Eosinophils 0.2 10^3/uL (0.0-0.5); ABS Lymphocytes 0.4 10^3/uL (1.0-4.8); ABS Monocytes 0.7 10^3/uL (0.0-0.9); ABS Neutrophils 6.5 10^3/uL (1.5-7.6); ABS Nucleated RBC 0.01 10^3/ul; Eosinophil % 2.5 %; Hematocrit 46.4 % (35-45); Hemoglobin 14.5 g/dL (11.5-14.3); Lymphocyte % 5.6 %; Mean Corpuscular Hemoglobin 24.8 pg (27-33); Mean Corpuscular Hgb Conc 31.2 g/dL (31-36); Mean Corpuscular Volume 79.5 fL (80-97); Mean Platelet Volume 7.7 fL (7.5-11.2); Nucleated Red Blood Cells % 0.1 %/100WBC (0.0-0.8); Platelet Count 260 10^3/uL (150-450); Red Blood Count 5.84 10^6/uL (3.63-4.92); Red Cell Distribution Width 18.9 % (12-17); White Blood Count 7.9 10^3/uL (3.8-11.8)
[2023-10-23] MEDS: Cefepime 2 GM in Dextrose 2 GM/50 ML BAG IV ONE (16:48)
[2023-10-23 17:23] LABS: ALT 30 U/L (7-52); Albumin 3.8 g/dL (3.2-5.2); Albumin/Globulin Ratio 1.6 (1-3); Alkaline Phosphatase 129 U/L (35-149); Anion Gap 7 mmol/L (2-16); Blood Urea Nitrogen 20 mg/dL (6-24); C Reactive Protein 7.81 mg/L (<8.01); CO2 Carbon Dioxide 35 mmol/L (22-32); Calcium 9.3 mg/dL (8.6-10.3); Chloride 98 mmol/L (101-111); Creatinine, Serum 0.99 mg/dL (0.51-0.95); Globulin 2.4 g/dL (2-4); Glucose 102 mg/dL (70-100); Sodium 140 mmol/L (135-145); Total Protein 6.2 g/dL (6.4-8.9); eGFR CKD-EPI 64.9 (>60)
[2023-10-23] MEDS: Vancomycin 1,500 MG in NS 0.9% 250 ml 250 ML IVPB ONE (18:10)
[2023-10-23 19:23] LABS: Erythrocyte Sed Rate 2 mm/Hr (0-29)
[2023-10-23 19:35] LABS: Potassium Redraw 5.1 mmol/L (3.5-5.0)
[2023-10-23] MEDS: Furosemide 40 mg/4 ml IV VIAL IV ONE (20:20)
[2023-10-23] MEDS: Albuterol/Ipratropium NEB.SOL (2.5/0.5 MG) 3 ML NEB.SOLN INH SCH (20:20)
[2023-10-23] MEDS ORDERED: Vancomycin per Pharmacy 1 EA NOTE FOLLOW UP SCH (21:00)
[2023-10-24] MEDS: Cefepime 2 GM in Dextrose 2 GM/50 ML BAG IV SCH (03:46)
[2023-10-24] MEDS: Vancomycin 1,250 MG in NS 0.9% 250 ml 250 ML IVPB SCH (05:57)
[2023-10-24 10:01] LABS: PCO2 Arterial 64 mmHg (35-45); PO2 Arterial 70 mmHg (80-100)
[2023-10-24] MEDS: Furosemide 40 mg/4 ml IV VIAL IV ONE (10:18)
[2023-10-24] MEDS ORDERED: Albuterol 2.5mg/3 ml (0.083%) NEB.SOLN INH PRN (10:54)
[2023-10-24 11:35] LABS: C Reactive Protein 10.24 mg/L (<8.01)
[2023-10-24] MEDS: Azithromycin 500 mg/250 ml NS 500 MG/250 ML BAG IVPB SCH (11:44)
[2023-10-24] MEDS: Albuterol/Ipratropium NEB.SOL (2.5/0.5 MG) 3 ML NEB.SOLN INH SCH (11:46)
[2023-10-24] MEDS: cefTRIAXone 1 gm/50 mL D5W 1 GM/50 ML BAG IV SCH ×2 (12:12→15:48)
[2023-10-24] MEDS ORDERED: guaiFENesin 100 mg/5 ml LIQ unit dose cup PO PRN (12:47)
[2023-10-24] MEDS ORDERED: Albuterol/Ipratropium NEB.SOL (2.5/0.5 MG) 3 ML NEB.SOLN INH PRN (19:40)
[2023-10-25] MEDS: Nystatin TOP POWDER 15 GM BTL TOPICAL SCH (02:12)
[2023-10-25] MEDS ORDERED: Vancomycin Trough Check NOTE FOLLOW UP ONE (05:30)
[2023-10-25 07:00] LABS: Albumin 3.4 g/dL (3.2-5.2); Albumin/Globulin Ratio 1.6 (1-3); Calcium 8.9 mg/dL (8.6-10.3); Creatinine, Serum 1.11 mg/dL (0.51-0.95); Globulin 2.1 g/dL (2-4); Magnesium 1.9 mg/dL (1.9-2.7); Potassium 4.2 mmol/L (3.5-5.0); Total Bilirubin 0.7 mg/dL (0.2-1.0); Total Protein 5.5 g/dL (6.4-8.9); eGFR CKD-EPI 56.6 (>60)
[2023-10-25 09:22] LABS: ABS Lymphocytes 0.5 10^3/uL (1.0-4.8); ABS Monocytes 0.7 10^3/uL (0.0-0.9); ABS Neutrophils 7.1 10^3/uL (1.5-7.6); Eosinophil % 0.2 %; Hematocrit 44.7 % (35-45); Hemoglobin 13.7 g/dL (11.5-14.3); Lymphocyte % 5.7 %; Mean Corpuscular Hemoglobin 24.5 pg (27-33); Mean Corpuscular Hgb Conc 30.7 g/dL (31-36); Mean Corpuscular Volume 79.8 fL (80-97); Mean Platelet Volume 8.2 fL (7.5-11.2); Platelet Count 256 10^3/uL (150-450); Red Cell Distribution Width 18.5 % (12-17); White Blood Count 8.2 10^3/uL (3.8-11.8)
[2023-10-25] MEDS: Azithromycin 500 mg/250 ml NS 500 MG/250 ML BAG IVPB SCH (13:52)
[2023-10-25] MEDS ORDERED: Umeclidinium 62.5 MDI(NF) MDI INH SCH (17:00)
[2023-10-25] MEDS: Albuterol/Ipratropium NEB.SOL (2.5/0.5 MG) 3 ML NEB.SOLN INH SCH ×2 (17:25→17:26)
[2023-10-25] MEDS: Potassium Chlor 20 meq TAB.ER PO SCH (18:00)
[2023-10-25] MEDS: Tiotropium Brom/Olodaterol MDI (ACUTE) INH SCH (19:25)
[2023-10-25] MEDS: Furosemide 20 mg/2 ml IV VIAL IV ONE (19:26)
[2023-10-25] MEDS: Fluticasone NASAL SPRAY 50MCG 16 gm SPRAY BTL INTRANASAL SCH (19:44)
[2023-10-25] MEDS: Iodixanol (CONTRAST) 320 MG/ML 100 ML SDV IV ONE (20:40)
[2023-10-26 07:17] LABS: Calcium 8.8 mg/dL (8.6-10.3); Creatinine, Serum 1.19 mg/dL (0.51-0.95); Potassium 4.1 mmol/L (3.5-5.0)
[2023-10-26 07:38] LABS: ABS Lymphocytes 0.7 10^3/uL (1.0-4.8); ABS Monocytes 0.9 10^3/uL (0.0-0.9); ABS Neutrophils 6.5 10^3/uL (1.5-7.6); Eosinophil % 0.4 %; Hematocrit 44.7 % (35-45); Hemoglobin 13.3 g/dL (11.5-14.3); Lymphocyte % 8.8 %; Mean Corpuscular Hemoglobin 24.4 pg (27-33); Mean Corpuscular Hgb Conc 29.8 g/dL (31-36); Mean Corpuscular Volume 81.7 fL (80-97); Mean Platelet Volume 7.7 fL (7.5-11.2); Nucleated Red Blood Cells % 0.1 %/100WBC (0.0-0.8); Platelet Count 251 10^3/uL (150-450); Red Blood Count 5.48 10^6/uL (3.63-4.92); Red Cell Distribution Width 18.7 % (12-17); White Blood Count 8.2 10^3/uL (3.8-11.8)
[2023-10-26] MEDS ORDERED: Mupirocin 2% OINT TUBE TOPICAL SCH (09:00)
[2023-10-28 06:52] LABS: ABS Lymphocytes 0.8 10^3/uL (1.0-4.8); ABS Monocytes 0.8 10^3/uL (0.0-0.9); ABS Neutrophils 6.2 10^3/uL (1.5-7.6); ABS Nucleated RBC 0.01 10^3/ul; Eosinophil % 0.3 %; Hematocrit 44.1 % (35-45); Hemoglobin 13.4 g/dL (11.5-14.3); Lymphocyte % 9.7 %; Mean Corpuscular Hemoglobin 24.4 pg (27-33); Mean Corpuscular Hgb Conc 30.5 g/dL (31-36); Mean Platelet Volume 7.6 fL (7.5-11.2); Nucleated Red Blood Cells % 0.1 %/100WBC (0.0-0.8); Platelet Count 251 10^3/uL (150-450); Red Blood Count 5.52 10^6/uL (3.63-4.92); Red Cell Distribution Width 18.7 % (12-17); White Blood Count 7.9 10^3/uL (3.8-11.8)
[2023-10-28 07:24] LABS: Calcium 9.3 mg/dL (8.6-10.3); Creatinine, Serum 1.05 mg/dL (0.51-0.95); Magnesium 1.9 mg/dL (1.9-2.7); Potassium 4.2 mmol/L (3.5-5.0); eGFR CKD-EPI 60.5 (>60)
[2023-10-28] MEDS: Hemorrhoidal OINT 1 TUBE PR PRN (11:08)
[2023-10-28] MEDS: Psyllium PAK PO SCH (12:33)
[2023-10-29] MEDS: cefTRIAXone 1 GM Q24H (ADVAN) IVPB ONE (16:25)
[2023-10-29 18:02] LABS: Rapid COVID-19 Molecular Undetected (Undetected)
[2023-10-30 06:43] LABS: ABS Lymphocytes 0.8 10^3/uL (1.0-4.8); ABS Monocytes 0.8 10^3/uL (0.0-0.9); ABS Neutrophils 7.2 10^3/uL (1.5-7.6); Eosinophil % 0.5 %; Hematocrit 47.9 % (35-45); Hemoglobin 14.5 g/dL (11.5-14.3); Lymphocyte % 9.1 %; Mean Corpuscular Hemoglobin 24.6 pg (27-33); Mean Corpuscular Hgb Conc 30.3 g/dL (31-36); Mean Corpuscular Volume 81.2 fL (80-97); Mean Platelet Volume 7.6 fL (7.5-11.2); Platelet Count 234 10^3/uL (150-450); White Blood Count 8.8 10^3/uL (3.8-11.8)
[2023-10-30 08:04] LABS: Anion Gap 10 mmol/L (2-16); Blood Urea Nitrogen 41 mg/dL (6-24); CO2 Carbon Dioxide 36 mmol/L (22-32); Calcium 9.7 mg/dL (8.6-10.3); Chloride 97 mmol/L (101-111); Creatinine, Serum 0.99 mg/dL (0.51-0.95); Glucose 97 mg/dL (70-100); Sodium 143 mmol/L (135-145); eGFR CKD-EPI 64.9 (>60)
[2023-10-30] MEDS ORDERED: cefTRIAXone 1 gm/50 mL D5W 1 GM/50 ML BAG IV SCH (16:00)
[2023-10-31 10:47] VITALS: BP 127/62
== END 2023-10-31 12:40 | DRG 190 ==
LOC: ED 15:04 → EDHOLD 15:04 → SUATTDRO 10-24 11:57 → MEDTELE 10-24 12:12 → MED 10-24 21:56
PROVIDERS: ADMIT Hospitalist; ATTEND Internal Medicine

== ENCOUNTER 2024-02-29 20:03 | Inpatient (IN) ==
[2024-02-29 21:31] LABS: ABS Eosinophils 0.2 10^3/uL (0.0-0.5); ABS Lymphocytes 0.4 10^3/uL (1.0-4.8); ABS Monocytes 0.6 10^3/uL (0.0-0.9); ABS Neutrophils 5.9 10^3/uL (1.5-7.6); Eosinophil % 2.6 %; Hematocrit 48.6 % (35-45); Hemoglobin 15.3 g/dL (11.5-14.3); Lymphocyte % 5.7 %; Mean Corpuscular Hemoglobin 26.1 pg (27-33); Mean Corpuscular Hgb Conc 31.5 g/dL (31-36); Mean Corpuscular Volume 82.9 fL (80-97); Mean Platelet Volume 7.7 fL (7.5-11.2); Nucleated Red Blood Cells % 0.1 %/100WBC (0.0-0.8); Platelet Count 254 10^3/uL (150-450); Red Blood Count 5.86 10^6/uL (3.63-4.92); Red Cell Distribution Width 18.3 % (12-17)
[2024-02-29 22:13] LABS: C Reactive Protein 20.72 mg/L (<8.01); Calcium 9.6 mg/dL (8.6-10.3); Creatinine, Serum 1.04 mg/dL (0.51-0.95); Potassium 4.5 mmol/L (3.5-5.0); eGFR CKD-EPI 61.1 (>60)
[2024-02-29 22:53] LABS: Erythrocyte Sed Rate 2 mm/Hr (0-29)
[2024-03-01] MEDS: Albuterol/Ipratropium NEB.SOL (2.5/0.5 MG) 3 ML NEB.SOLN INH ONE (09:08)
[2024-03-01] MEDS: Furosemide 40 mg/4 ml IV VIAL IV ONE (09:55)
[2024-03-01] MEDS: cefTRIAXone 1 gm/50 mL D5W 1 GM/50 ML BAG IV ONE (09:56)
[2024-03-01] MEDS ORDERED: Rocuronium 50 mg VIAL 10 mg/ml 5 ml VIAL (50 mg) ONE ×2 (10:21→10:55)
[2024-03-01] MEDS ORDERED: Succinylcholine 200 mg VIAL 20 mg/ml 10 ml VIAL (200 mg) ONE (10:21)
[2024-03-01 10:48] LABS: Resp Rate 22
[2024-03-01] MEDS ORDERED: Propofol 10 MG/ML 20 ML BTL ONE (10:49)
[2024-03-01 10:50] LABS: PCO2 Arterial 51 mmHg (35-45); PO2 Arterial 350 mmHg (80-100)
[2024-03-01] MEDS ORDERED: Propofol 10 mg/ml 100 ML BTL 1,000 MG/100 ML BTL ONE (10:50)
[2024-03-01] MEDS ORDERED: Etomidate 40 mg/20 ml (2 MG/ML) 20 ml VIAL (40 mg) ONE (10:55)
[2024-03-01] MEDS ORDERED: Midazolam 10 mg/10 ml VIAL 1 mg/ml 10 ml VIAL (10 mg) ONE (10:55)
[2024-03-01] MEDS: Midazolam 10 mg/10 ml VIAL 1 mg/ml 10 ml VIAL (10 mg) IV SLOW PU ONE ×2 (10:55→15:45)
[2024-03-01] MEDS: Etomidate 20 mg/10 ml 2 MG/ML 10 ml VIAL IV ONE (10:56)
[2024-03-01] MEDS: Rocuronium 50 mg VIAL 10 mg/ml 5 ml VIAL (50 mg) IV ONE (10:57)
[2024-03-01] MEDS: Propofol 10 mg/ml 100 ML BTL 1,000 MG/100 ML BTL IV SCH (11:05)
[2024-03-01] MEDS ORDERED: Albuterol 2.5mg/3 ml (0.083%) NEB.SOLN INH PRN (11:17)
[2024-03-01] MEDS: Ondansetron 4 mg VIAL 2 MG/ML 2 ml VIAL IV ONE (11:40)
[2024-03-01] MEDS ORDERED: Albuterol/Ipratropium NEB.SOL (2.5/0.5 MG) 3 ML NEB.SOLN INH SCH (12:00)
[2024-03-01 12:31] LABS: High Sensitivity Troponin 1 Hr 24 pg/mL (<15)
[2024-03-01 12:38] LABS: Urine Appearance Turbid; Urine Bilirubin Negative (Negative); Urine Blood Trace (Negative); Urine Color Yellow; Urine Glucose Negative (Negative); Urine Ketones Negative (Negative); Urine Nitrite Negative (Negative); Urine Protein 1+ (>=30 mg/dL) (Negative); Urine Specific Gravity 1.019 (1.002-1.030); Urine Urobilinogen 1+ (Negative); Urine pH 6.5 (5.0-8.0)
[2024-03-01] MEDS ORDERED: Sulfur Hexaflouride MICROSPHR 25 MG VIAL IV PRN (12:43)
[2024-03-01 13:08] LABS: Budding Yeast Present /HPF (Absent); Urine Bacteria 1+ /HPF (Absent); Urine Red Blood Cell 3+(>10/hpf) /HPF (0-Trace); Urine Squamous Epithelial Cell Present /HPF (Absent); Urine White Blood Cell 3+(>20/hpf) /HPF (0-Trace)
[2024-03-01] MEDS: Chlorhexidine MOUTHWASH 0.12% 15 ML UDC TOPICAL SCH (13:32)
[2024-03-01] MEDS: Vancomycin 1,500 MG in NS 0.9% 250 ml 250 ML IVPB ONE (13:40)
[2024-03-01] MEDS: Albuterol/Ipratropium NEB.SOL (2.5/0.5 MG) 3 ML NEB.SOLN INH SCH (13:40)
[2024-03-01] MEDS ORDERED: Morphine 2 MG/ML SYRINGE IV PRN (14:05)
[2024-03-01 15:09] LABS: Resp Rate 20
[2024-03-01 15:13] LABS: PCO2 Arterial 63 mmHg (35-45); PO2 Arterial 81 mmHg (80-100)
[2024-03-01 15:39] LABS: ABS Basophils 0.1 10^3/uL (0.0-0.1); ABS Lymphocytes 0.2 10^3/uL (1.0-4.8); ABS Monocytes 1.4 10^3/uL (0.0-0.9); ABS Neutrophils 14.6 10^3/uL (1.5-7.6); ABS Nucleated RBC 0.01 10^3/ul; Eosinophil % 0.1 %; Hematocrit 48.3 % (35-45); Hemoglobin 14.9 g/dL (11.5-14.3); Mean Corpuscular Hemoglobin 25.6 pg (27-33); Mean Corpuscular Hgb Conc 30.8 g/dL (31-36); Mean Corpuscular Volume 83.1 fL (80-97); Mean Platelet Volume 7.8 fL (7.5-11.2); Platelet Count 230 10^3/uL (150-450); Red Blood Count 5.81 10^6/uL (3.63-4.92); Red Cell Distribution Width 18.4 % (12-17); White Blood Count 16.2 10^3/uL (3.8-11.8)
[2024-03-01 16:31] LABS: Anion Gap 7 mmol/L (2-16); Blood Urea Nitrogen 21 mg/dL (6-24); CO2 Carbon Dioxide 34 mmol/L (22-32); Calcium 8.9 mg/dL (8.6-10.3); Chloride 99 mmol/L (101-111); Creatinine, Serum 1.13 mg/dL (0.51-0.95); Glucose 108 mg/dL (70-100); Sodium 140 mmol/L (135-145); eGFR CKD-EPI 55.4 (>60)
[2024-03-01 16:46] LABS: Urine Appearance Turbid; Urine Bilirubin Negative (Negative); Urine Blood Negative (Negative); Urine Color Light-Yellow; Urine Glucose Negative (Negative); Urine Ketones Negative (Negative); Urine Nitrite Negative (Negative); Urine Protein Negative (Negative); Urine Specific Gravity 1.008 (1.002-1.030); Urine Urobilinogen Negative (Negative)
[2024-03-01] MEDS: Midazolam 5 mg/5 ml VIAL 1 mg/ml 5 ml VIAL (5 mg) ONE (16:47)
[2024-03-01] MEDS: Norepinephrine 4 MG/250mL D5W 4,000 MCG/250 ML BAG IV SCH (16:48)
[2024-03-01] MEDS: Norepinephrine 4 MG/250mL D5W 4,000 MCG/250 ML BAG IV ONE (17:03)
[2024-03-01 17:15] LABS: Urine Bacteria 1+ /HPF (Absent); Urine Red Blood Cell 2+(6-10/hpf) /HPF (0-Trace); Urine Squamous Epithelial Cell Present /HPF (Absent); Urine White Blood Cell 2+(11-20/hpf) /HPF (0-Trace)
[2024-03-01] MEDS: Pantoprazole VIAL 40 MG VIAL IV SCH (19:34)
[2024-03-01] MEDS: cefTRIAXone 1 gm/50 mL D5W 1 GM/50 ML BAG IV SCH (20:48)
[2024-03-01] MEDS: Nystatin TOP POWDER 15 GM BTL TOPICAL SCH (20:49)
[2024-03-01] MEDS ORDERED: Famotidine IV 10 MG/ML 2 ml VIAL (20 mg) IV SLOW PU SCH (21:00)
[2024-03-01] MEDS: Acetaminophen IV 1 GM/100ML 1,000 MG/100 ML BAG IV PRN (22:23)
[2024-03-02 06:24] LABS: ABS Eosinophils 0.1 10^3/uL (0.0-0.5); ABS Lymphocytes 0.6 10^3/uL (1.0-4.8); ABS Monocytes 0.9 10^3/uL (0.0-0.9); ABS Neutrophils 8.1 10^3/uL (1.5-7.6); Eosinophil % 0.5 %; Hemoglobin 13.4 g/dL (11.5-14.3); Mean Corpuscular Hemoglobin 25.9 pg (27-33); Mean Platelet Volume 7.6 fL (7.5-11.2); Platelet Count 217 10^3/uL (150-450); Red Blood Count 5.18 10^6/uL (3.63-4.92); Red Cell Distribution Width 18.2 % (12-17); White Blood Count 9.6 10^3/uL (3.8-11.8)
[2024-03-02 08:35] LABS: Calcium 8.3 mg/dL (8.6-10.3); Creatinine, Serum 1.27 mg/dL (0.51-0.95); Magnesium 1.8 mg/dL (1.9-2.7); Potassium 4.3 mmol/L (3.5-5.0); eGFR CKD-EPI 48.1 (>60)
[2024-03-02] MEDS: Furosemide 40 mg/4 ml IV VIAL IV ONE (09:50)
[2024-03-02] MEDS: Magnesium Sulfate 2 gm BAG 2 GM/50 ML BAG IVPB ONE (09:50)
[2024-03-02] MEDS: Iodixanol (CONTRAST) 320 MG/ML 100 ML SDV IV ONE (16:17)
[2024-03-02] MEDS: fentaNYL 100 mcg/2 ml 50 MCG/ML VIAL IV SLOW PU PRN (17:40)
[2024-03-03 06:31] LABS: ABS Eosinophils 0.2 10^3/uL (0.0-0.5); ABS Lymphocytes 0.4 10^3/uL (1.0-4.8); ABS Monocytes 0.6 10^3/uL (0.0-0.9); ABS Neutrophils 6.8 10^3/uL (1.5-7.6); ABS Nucleated RBC 0.01 10^3/ul; Hematocrit 41.3 % (35-45); Hemoglobin 13.2 g/dL (11.5-14.3); Lymphocyte % 4.8 %; Mean Corpuscular Hemoglobin 25.9 pg (27-33); Mean Platelet Volume 7.6 fL (7.5-11.2); Nucleated Red Blood Cells % 0.1 %/100WBC (0.0-0.8); Platelet Count 213 10^3/uL (150-450); Red Cell Distribution Width 17.8 % (12-17)
[2024-03-03 07:13] LABS: Calcium 8.3 mg/dL (8.6-10.3); Creatinine, Serum 0.95 mg/dL (0.51-0.95); Magnesium 2.2 mg/dL (1.9-2.7); Potassium 3.9 mmol/L (3.5-5.0); eGFR CKD-EPI 68.2 (>60)
[2024-03-03] MEDS ORDERED: Lorazepam PYXIS KEY PRN (07:25)
[2024-03-03] MEDS: Furosemide 40 mg/4 ml IV VIAL IV SCH (07:31)
[2024-03-03] MEDS: LORazepam 2 mg VIAL 1 ml IV PUSH PRN (07:31)
[2024-03-03] MEDS: EPINEPHrine,Rac 2.25% NEB.SOL 0.5 ML ONE (07:56)
[2024-03-03] MEDS ORDERED: EPINEPHrine,Rac 2.25% NEB.SOL 0.5 ML INH PRN (08:28)
[2024-03-03] MEDS: Dexamethasone IV 4 MG/ML VIAL 1 ml VIAL IV SLOW PU ONE (10:05)
[2024-03-03] MEDS: Propofol 10 mg/ml 100 ML BTL 1,000 MG/100 ML BTL IV SCH (10:35)
[2024-03-03] MEDS: Rocuronium 50 mg VIAL 10 mg/ml 5 ml VIAL (50 mg) ONE (10:59)
[2024-03-03] MEDS: fentaNYL 100 mcg/2 ml 50 MCG/ML VIAL IV SLOW PU PRN ×2 (12:20→21:38)
[2024-03-03] MEDS: Propofol 10 mg/ml 100 ML BTL 1,000 MG/100 ML BTL ONE (12:42)
[2024-03-03] MEDS: Chlorhexidine MOUTHWASH 0.12% 15 ML UDC TOPICAL SCH (14:57)
[2024-03-03] MEDS: KCL 20 MEQ/100 ML IVPREMIX 20 MEQ/100 ML BAG IV ONE (17:05)
[2024-03-03] MEDS: Magnesium Sulfate 2 gm BAG 2 GM/50 ML BAG IVPB ONE (17:05)
[2024-03-03] MEDS: Dexamethasone IV 4 MG/ML VIAL 1 ml VIAL IV SLOW PU SCH (17:07)
[2024-03-03] MEDS: Famotidine IV 10 MG/ML 2 ml VIAL (20 mg) IV SLOW PU SCH (21:21)
[2024-03-04 04:48] LABS: ABS Lymphocytes 0.2 10^3/uL (1.0-4.8); ABS Monocytes 0.2 10^3/uL (0.0-0.9); ABS Neutrophils 5.5 10^3/uL (1.5-7.6); Hematocrit 44.9 % (35-45); Hemoglobin 14.4 g/dL (11.5-14.3); Lymphocyte % 3.2 %; Mean Corpuscular Hemoglobin 26.2 pg (27-33); Mean Corpuscular Hgb Conc 32.1 g/dL (31-36); Mean Corpuscular Volume 81.9 fL (80-97); Mean Platelet Volume 7.7 fL (7.5-11.2); Platelet Count 263 10^3/uL (150-450); Red Blood Count 5.48 10^6/uL (3.63-4.92); Red Cell Distribution Width 18.6 % (12-17); White Blood Count 5.9 10^3/uL (3.8-11.8)
[2024-03-04 05:50] LABS: Potassium 4.6 mmol/L (3.5-5.0)
[2024-03-04 05:51] LABS: Calcium 8.9 mg/dL (8.6-10.3); Creatinine, Serum 0.75 mg/dL (0.51-0.95); Magnesium 2.6 mg/dL (1.9-2.7); eGFR CKD-EPI 90.5 (>60)
[2024-03-04] MEDS: LORazepam 2 mg VIAL 1 ml IV PUSH PRN (07:47)
[2024-03-04] MEDS: Senna TAB 8.6 mg TAB NG TUBE SCH (09:36)
[2024-03-04] MEDS: Polyethylene Glycol 3350 17 GM PACKET NG TUBE SCH (09:36)
[2024-03-05 04:37] LABS: ABS Lymphocytes 0.5 10^3/uL (1.0-4.8); ABS Monocytes 0.7 10^3/uL (0.0-0.9); ABS Neutrophils 6.8 10^3/uL (1.5-7.6); ABS Nucleated RBC 0.01 10^3/ul; Eosinophil % 0.4 %; Hematocrit 43.5 % (35-45); Hemoglobin 13.7 g/dL (11.5-14.3); Lymphocyte % 6.3 %; Mean Corpuscular Hemoglobin 25.5 pg (27-33); Mean Corpuscular Hgb Conc 31.6 g/dL (31-36); Mean Corpuscular Volume 80.9 fL (80-97); Mean Platelet Volume 7.6 fL (7.5-11.2); Nucleated Red Blood Cells % 0.1 %/100WBC (0.0-0.8); Platelet Count 264 10^3/uL (150-450); Red Blood Count 5.38 10^6/uL (3.63-4.92); Red Cell Distribution Width 18.2 % (12-17)
[2024-03-05 05:25] LABS: Creatinine, Serum 0.78 mg/dL (0.51-0.95); Magnesium 2.1 mg/dL (1.9-2.7); Potassium 3.6 mmol/L (3.5-5.0); eGFR CKD-EPI 86.4 (>60)
[2024-03-05] MEDS: Lactated Ringers 1000 ml BAG 1,000 ML IV SCH (06:12)
[2024-03-05] MEDS ORDERED: Lidocaine 2% PF 5 ML VIAL ONE (06:47)
[2024-03-05] MEDS ORDERED: Rocuronium 50 mg VIAL 10 mg/ml 5 ml VIAL (50 mg) ONE (06:47)
[2024-03-05] MEDS ORDERED: Midazolam 5 mg/5 ml VIAL 1 mg/ml 5 ml VIAL (5 mg) ONE (06:51)
[2024-03-05] MEDS ORDERED: fentaNYL 100 mcg/2 ml 50 MCG/ML VIAL ONE (06:51)
[2024-03-05] MEDS ORDERED: Phenylephrine 40 mcg/mL 10mL (400mcg) SYRINGE ONE (06:53)
[2024-03-05] MEDS ORDERED: Propofol 10 MG/ML 20 ML BTL ONE (06:53)
[2024-03-05] MEDS ORDERED: Lidocaine 1% w EPI 1:100,000 MDV 20 ML VIAL ONE (06:56)
[2024-03-05] MEDS ORDERED: Dexamethasone IV 4 MG/ML VIAL 1 ml VIAL ONE (08:25)
[2024-03-05] MEDS ORDERED: Ondansetron 4 mg VIAL 2 MG/ML 2 ml VIAL ONE (08:31)
[2024-03-05] MEDS: Buffered Lidocaine 1% SYRIN 1 ml INTRADERM ONE (14:17)
[2024-03-05 20:58] LABS: Resp Rate 20
[2024-03-05 21:02] LABS: PCO2 Arterial 36 mmHg (35-45); PO2 Arterial 165 mmHg (80-100)
[2024-03-06] MEDS ORDERED: Dextrose 50% Syringe 50 ml 25 GM/50 ML SYRINGE IV PUSH PRN (01:40)
[2024-03-06 05:25] LABS: ABS Eosinophils 0.1 10^3/uL (0.0-0.5); ABS Lymphocytes 0.5 10^3/uL (1.0-4.8); ABS Monocytes 0.8 10^3/uL (0.0-0.9); Eosinophil % 0.8 %; Hematocrit 45.4 % (35-45); Hemoglobin 14.1 g/dL (11.5-14.3); Lymphocyte % 6.8 %; Mean Corpuscular Hemoglobin 25.3 pg (27-33); Mean Corpuscular Hgb Conc 31.1 g/dL (31-36); Mean Corpuscular Volume 81.4 fL (80-97); Mean Platelet Volume 7.6 fL (7.5-11.2); Platelet Count 264 10^3/uL (150-450); Red Blood Count 5.58 10^6/uL (3.63-4.92); White Blood Count 7.4 10^3/uL (3.8-11.8)
[2024-03-06 05:59] LABS: Creatinine, Serum 0.69 mg/dL (0.51-0.95); Magnesium 1.9 mg/dL (1.9-2.7); Phosphorus 3.9 mg/dL (2.5-5.0); Potassium 3.7 mmol/L (3.5-5.0); eGFR CKD-EPI 98.7 (>60)
[2024-03-06] MEDS: Magnesium Sulfate 2 gm BAG 2 GM/50 ML BAG IVPB ONE (07:59)
[2024-03-06] MEDS: Furosemide 40 mg/4 ml IV VIAL IV ONE (15:07)
[2024-03-06] MEDS: Enoxaparin 40 MG/0.4 ML SYR SUBCUT SCH (20:43)
[2024-03-06] MEDS: Acetaminophen IV 1 GM/100ML 1,000 MG/100 ML BAG IV PRN (22:59)
[2024-03-07 04:19] LABS: ABS Basophils 0.1 10^3/uL (0.0-0.1); ABS Eosinophils 0.4 10^3/uL (0.0-0.5); ABS Lymphocytes 0.5 10^3/uL (1.0-4.8); ABS Monocytes 0.8 10^3/uL (0.0-0.9); ABS Neutrophils 6.4 10^3/uL (1.5-7.6); Eosinophil % 4.5 %; Hematocrit 46.4 % (35-45); Hemoglobin 14.5 g/dL (11.5-14.3); Lymphocyte % 6.7 %; Mean Corpuscular Hemoglobin 25.1 pg (27-33); Mean Corpuscular Hgb Conc 31.1 g/dL (31-36); Mean Corpuscular Volume 80.7 fL (80-97); Mean Platelet Volume 7.5 fL (7.5-11.2); Platelet Count 252 10^3/uL (150-450); Red Blood Count 5.75 10^6/uL (3.63-4.92); Red Cell Distribution Width 18.2 % (12-17); White Blood Count 8.1 10^3/uL (3.8-11.8)
[2024-03-07 05:08] LABS: Calcium 8.8 mg/dL (8.6-10.3); Creatinine, Serum 0.88 mg/dL (0.51-0.95); eGFR CKD-EPI 74.7 (>60)
[2024-03-07] MEDS: KCL 20 MEQ/100 ML IVPREMIX 20 MEQ/100 ML BAG IV SCH (07:53)
[2024-03-07] MEDS: cefTRIAXone 1 gm/50 mL D5W 1 GM/50 ML BAG IV SCH (15:57)
[2024-03-07] MEDS: Chlorhexidine MOUTHWASH 0.12% 15 ML UDC TOPICAL SCH (23:54)
[2024-03-08 05:17] LABS: Calcium 9.3 mg/dL (8.6-10.3); Creatinine, Serum 0.64 mg/dL (0.51-0.95); Potassium 3.3 mmol/L (3.5-5.0); eGFR CKD-EPI 100.5 (>60)
[2024-03-08] MEDS: KCL 20 MEQ/100 ML IVPREMIX 20 MEQ/100 ML BAG IV SCH (08:26)
[2024-03-09 09:44] LABS: ABS Basophils 0.1 10^3/uL (0.0-0.1); ABS Eosinophils 0.6 10^3/uL (0.0-0.5); ABS Lymphocytes 0.6 10^3/uL (1.0-4.8); ABS Monocytes 0.9 10^3/uL (0.0-0.9); Eosinophil % 6.9 %; Hemoglobin 15.2 g/dL (11.5-14.3); Lymphocyte % 7.8 %; Mean Corpuscular Hemoglobin 26.2 pg (27-33); Mean Corpuscular Hgb Conc 32.2 g/dL (31-36); Mean Corpuscular Volume 81.4 fL (80-97); Mean Platelet Volume 8.1 fL (7.5-11.2); Nucleated Red Blood Cells % 0.1 %/100WBC (0.0-0.8); Platelet Count 319 10^3/uL (150-450); Red Blood Count 5.78 10^6/uL (3.63-4.92); Red Cell Distribution Width 18.1 % (12-17); White Blood Count 8.1 10^3/uL (3.8-11.8)
[2024-03-09 10:05] LABS: Albumin 3.7 g/dL (3.2-5.2); Albumin/Globulin Ratio 1.2 (1-3); Calcium 9.6 mg/dL (8.6-10.3); Creatinine, Serum 0.73 mg/dL (0.51-0.95); Globulin 3.1 g/dL (2-4); Magnesium 1.9 mg/dL (1.9-2.7); Potassium 3.8 mmol/L (3.5-5.0); Total Protein 6.8 g/dL (6.4-8.9); eGFR CKD-EPI 93.5 (>60)
[2024-03-09] MEDS: Potassium Chloride LIQUID 20 MEQ/15 ML LIQUID PO ONE (10:34)
[2024-03-09] MEDS: Magnesium Sulfate IV 1GM/100ML 1 GM/100 ML BAG IV ONE (10:35)
[2024-03-09] MEDS: Meropenem 1 GM PREMIX(*) 1 GM/50 ML BAG IV SCH (11:06)
[2024-03-10 05:20] LABS: Hematocrit 46.9 % (35-45); Hemoglobin 14.9 g/dL (11.5-14.3); Mean Corpuscular Hemoglobin 26.1 pg (27-33); Mean Corpuscular Hgb Conc 31.9 g/dL (31-36); Mean Corpuscular Volume 81.9 fL (80-97); Mean Platelet Volume 7.9 fL (7.5-11.2); Platelet Count 330 10^3/uL (150-450); Red Blood Count 5.72 10^6/uL (3.63-4.92); White Blood Count 6.8 10^3/uL (3.8-11.8)
[2024-03-10 06:41] LABS: Calcium 10.2 mg/dL (8.6-10.3); Creatinine, Serum 0.72 mg/dL (0.51-0.95); eGFR CKD-EPI 95.1 (>60)
[2024-03-10 07:00] LABS: ABS Eosinophils 0.4 10^3/uL (0.0-0.5); ABS Lymphocytes 0.4 10^3/uL (1.0-4.8); ABS Monocytes 0.8 10^3/uL (0.0-0.9); ABS Neutrophils 5.1 10^3/uL (1.5-7.6); Eosinophil % 6.2 %; Lymphocyte % 6.5 %; Nucleated Red Blood Cells % 0.1 %/100WBC (0.0-0.8)
[2024-03-11 05:33] LABS: ABS Basophils 0.1 10^3/uL (0.0-0.1); ABS Eosinophils 0.5 10^3/uL (0.0-0.5); ABS Lymphocytes 0.4 10^3/uL (1.0-4.8); ABS Neutrophils 4.6 10^3/uL (1.5-7.6); Hematocrit 47.9 % (35-45); Hemoglobin 14.9 g/dL (11.5-14.3); Lymphocyte % 6.8 %; Mean Corpuscular Hemoglobin 25.3 pg (27-33); Mean Corpuscular Hgb Conc 31.1 g/dL (31-36); Mean Corpuscular Volume 81.5 fL (80-97); Mean Platelet Volume 7.9 fL (7.5-11.2); Nucleated Red Blood Cells % 0.1 %/100WBC (0.0-0.8); Platelet Count 339 10^3/uL (150-450); Red Blood Count 5.88 10^6/uL (3.63-4.92); White Blood Count 6.5 10^3/uL (3.8-11.8)
[2024-03-11 06:11] LABS: Calcium 10.1 mg/dL (8.6-10.3); Creatinine, Serum 0.67 mg/dL (0.51-0.95); Phosphorus 3.4 mg/dL (2.5-5.0); Potassium 4.1 mmol/L (3.5-5.0); eGFR CKD-EPI 99.4 (>60)
[2024-03-11] MEDS ORDERED: Heparin 5000 UNITS/ML 1 mL VIAL IV SCH (10:00)
[2024-03-11] MEDS: Heparin DRIP 25,000 UNITS BAG 25,000 UNITS/250 ML BAG IV SCH (10:39)
[2024-03-12 05:44] LABS: ABS Basophils 0.1 10^3/uL (0.0-0.1); ABS Eosinophils 0.4 10^3/uL (0.0-0.5); ABS Lymphocytes 0.6 10^3/uL (1.0-4.8); ABS Monocytes 0.8 10^3/uL (0.0-0.9); ABS Neutrophils 3.5 10^3/uL (1.5-7.6); ABS Nucleated RBC 0.01 10^3/ul; Eosinophil % 7.3 %; Hematocrit 44.8 % (35-45); Hemoglobin 14.4 g/dL (11.5-14.3); Lymphocyte % 10.7 %; Mean Corpuscular Hemoglobin 26.2 pg (27-33); Mean Corpuscular Hgb Conc 32.1 g/dL (31-36); Mean Corpuscular Volume 81.5 fL (80-97); Mean Platelet Volume 7.9 fL (7.5-11.2); Nucleated Red Blood Cells % 0.1 %/100WBC (0.0-0.8); Platelet Count 305 10^3/uL (150-450); Red Blood Count 5.49 10^6/uL (3.63-4.92); Red Cell Distribution Width 17.9 % (12-17); White Blood Count 5.3 10^3/uL (3.8-11.8)
[2024-03-12 06:09] LABS: Calcium 9.9 mg/dL (8.6-10.3); Creatinine, Serum 0.65 mg/dL (0.51-0.95); Magnesium 1.9 mg/dL (1.9-2.7); Phosphorus 3.5 mg/dL (2.5-5.0); Potassium 3.7 mmol/L (3.5-5.0); eGFR CKD-EPI 100.1 (>60)
[2024-03-13 04:15] LABS: Hematocrit 44.8 % (35-45); Hemoglobin 14.3 g/dL (11.5-14.3); Mean Corpuscular Hemoglobin 26.1 pg (27-33); Mean Corpuscular Hgb Conc 31.9 g/dL (31-36); Mean Corpuscular Volume 81.7 fL (80-97); Mean Platelet Volume 7.8 fL (7.5-11.2); Platelet Count 320 10^3/uL (150-450); Red Blood Count 5.48 10^6/uL (3.63-4.92); White Blood Count 5.9 10^3/uL (3.8-11.8)
[2024-03-13 05:03] LABS: Calcium 10.4 mg/dL (8.6-10.3); Creatinine, Serum 0.69 mg/dL (0.51-0.95); Phosphorus 4.2 mg/dL (2.5-5.0); Potassium 4.4 mmol/L (3.5-5.0); eGFR CKD-EPI 98.7 (>60)
[2024-03-13 05:52] LABS: ABS Basophils 0.1 10^3/uL (0.0-0.1); ABS Eosinophils 0.3 10^3/uL (0.0-0.5); ABS Lymphocytes 0.4 10^3/uL (1.0-4.8); ABS Monocytes 0.8 10^3/uL (0.0-0.9); ABS Neutrophils 4.2 10^3/uL (1.5-7.6); Eosinophil % 5.3 %; Lymphocyte % 7.3 %; Nucleated Red Blood Cells % 0.1 %/100WBC (0.0-0.8)
[2024-03-13] MEDS: Furosemide 40 mg/4 ml IV VIAL IV ONE (16:33)
[2024-03-14] MEDS: Senna TAB 8.6 mg TAB PO SCH (10:37)
[2024-03-14] MEDS: Polyethylene Glycol 3350 17 GM PACKET PO SCH (10:37)
[2024-03-14] MEDS: Albuterol/Ipratropium NEB.SOL (2.5/0.5 MG) 3 ML NEB.SOLN INH PRN (13:41)
[2024-03-15 05:59] LABS: ABS Basophils 0.1 10^3/uL (0.0-0.1); ABS Eosinophils 0.3 10^3/uL (0.0-0.5); ABS Lymphocytes 0.8 10^3/uL (1.0-4.8); ABS Neutrophils 4.6 10^3/uL (1.5-7.6); ABS Nucleated RBC 0.02 10^3/ul; Eosinophil % 3.9 %; Hematocrit 47.2 % (35-45); Hemoglobin 14.5 g/dL (11.5-14.3); Lymphocyte % 11.6 %; Mean Corpuscular Hemoglobin 25.3 pg (27-33); Mean Corpuscular Hgb Conc 30.7 g/dL (31-36); Mean Corpuscular Volume 82.2 fL (80-97); Mean Platelet Volume 8.3 fL (7.5-11.2); Nucleated Red Blood Cells % 0.3 %/100WBC (0.0-0.8); Platelet Count 377 10^3/uL (150-450); Red Blood Count 5.74 10^6/uL (3.63-4.92); Red Cell Distribution Width 18.1 % (12-17); White Blood Count 6.6 10^3/uL (3.8-11.8)
[2024-03-15 06:03] LABS: Anion Gap 7 mmol/L (2-16); Blood Urea Nitrogen 28 mg/dL (6-24); CO2 Carbon Dioxide 39 mmol/L (22-32); Calcium 10.6 mg/dL (8.6-10.3); Chloride 94 mmol/L (101-111); Creatinine, Serum 0.83 mg/dL (0.51-0.95); Glucose 124 mg/dL (70-100); Sodium 140 mmol/L (135-145); eGFR CKD-EPI 80.2 (>60)
[2024-03-15] MEDS: LORazepam 2 mg VIAL 1 ml IV PUSH ONE (06:06)
[2024-03-15] MEDS: Haloperidol 5 mg/ml SDV IV/IM 5 MG/ML AMP IV SLOW PU ONE (06:06)
[2024-03-15] MEDS: Haloperidol 5 mg/ml SDV IV/IM 5 MG/ML AMP ONE (06:09)
[2024-03-15] MEDS: LORazepam 2 mg VIAL 1 ml ONE (06:09)
[2024-03-15] MEDS: Lactated Ringers 500 ml BAG 500 ML IV SCH (13:54)
[2024-03-16 04:01] LABS: PCO2 Arterial 63 mmHg (35-45); PO2 Arterial 77 mmHg (80-100)
[2024-03-16] MEDS: Furosemide 40 mg/4 ml IV VIAL IV SLOW PU ONE (04:06)
[2024-03-16 06:16] LABS: PCO2 Arterial 60 mmHg (35-45); PO2 Arterial 100 mmHg (80-100)
[2024-03-16 06:24] LABS: ABS Eosinophils 0.2 10^3/uL (0.0-0.5); ABS Lymphocytes 0.4 10^3/uL (1.0-4.8); ABS Monocytes 0.6 10^3/uL (0.0-0.9); ABS Neutrophils 3.5 10^3/uL (1.5-7.6); Eosinophil % 5.1 %; Hematocrit 44.6 % (35-45); Hemoglobin 14.2 g/dL (11.5-14.3); Mean Corpuscular Hemoglobin 26.2 pg (27-33); Mean Corpuscular Hgb Conc 31.8 g/dL (31-36); Mean Corpuscular Volume 82.3 fL (80-97); Mean Platelet Volume 7.8 fL (7.5-11.2); Nucleated Red Blood Cells % 0.1 %/100WBC (0.0-0.8); Platelet Count 300 10^3/uL (150-450); Red Blood Count 5.41 10^6/uL (3.63-4.92); Red Cell Distribution Width 18.2 % (12-17); White Blood Count 4.9 10^3/uL (3.8-11.8)
[2024-03-16 07:21] LABS: Anion Gap 1 mmol/L (2-16); Blood Urea Nitrogen 26 mg/dL (6-24); CO2 Carbon Dioxide 43 mmol/L (22-32); Calcium 10.1 mg/dL (8.6-10.3); Chloride 96 mmol/L (101-111); Creatinine, Serum 0.83 mg/dL (0.51-0.95); Glucose 104 mg/dL (70-100); Sodium 140 mmol/L (135-145); eGFR CKD-EPI 80.2 (>60)
[2024-03-16 07:29] LABS: Potassium, Whole Blood 4.2 mmol/L (3.4-4.5)
[2024-03-17 06:26] LABS: ABS Eosinophils 0.2 10^3/uL (0.0-0.5); ABS Lymphocytes 0.9 10^3/uL (1.0-4.8); ABS Monocytes 0.5 10^3/uL (0.0-0.9); ABS Neutrophils 3.7 10^3/uL (1.5-7.6); ABS Nucleated RBC 0.01 10^3/ul; Hematocrit 50.5 % (35-45); Hemoglobin 15.9 g/dL (11.5-14.3); Mean Corpuscular Hemoglobin 26.2 pg (27-33); Mean Corpuscular Hgb Conc 31.4 g/dL (31-36); Mean Corpuscular Volume 83.5 fL (80-97); Mean Platelet Volume 7.9 fL (7.5-11.2); Nucleated Red Blood Cells % 0.2 %/100WBC (0.0-0.8); Platelet Count 256 10^3/uL (150-450); Red Blood Count 6.05 10^6/uL (3.63-4.92); Red Cell Distribution Width 18.9 % (12-17); White Blood Count 5.3 10^3/uL (3.8-11.8)
[2024-03-17 07:32] LABS: Calcium 10.6 mg/dL (8.6-10.3); Magnesium 1.9 mg/dL (1.9-2.7); Potassium 4.1 mmol/L (3.5-5.0); eGFR CKD-EPI 64.1 (>60)
[2024-03-18 11:18] LABS: ABS Eosinophils 0.2 10^3/uL (0.0-0.5); ABS Lymphocytes 0.5 10^3/uL (1.0-4.8); ABS Monocytes 0.3 10^3/uL (0.0-0.9); ABS Neutrophils 2.9 10^3/uL (1.5-7.6); Hematocrit 49.4 % (35-45); Hemoglobin 14.9 g/dL (11.5-14.3); Lymphocyte % 12.9 %; Mean Corpuscular Hemoglobin 25.3 pg (27-33); Mean Corpuscular Hgb Conc 30.2 g/dL (31-36); Mean Corpuscular Volume 83.6 fL (80-97); Mean Platelet Volume 8.1 fL (7.5-11.2); Nucleated Red Blood Cells % 0.1 %/100WBC (0.0-0.8); Platelet Count 288 10^3/uL (150-450); Red Blood Count 5.91 10^6/uL (3.63-4.92); Red Cell Distribution Width 18.4 % (12-17); White Blood Count 3.9 10^3/uL (3.8-11.8)
[2024-03-18 11:48] LABS: Calcium 9.8 mg/dL (8.6-10.3); Creatinine, Serum 1.15 mg/dL (0.51-0.95); Magnesium 1.8 mg/dL (1.9-2.7); Potassium 4.1 mmol/L (3.5-5.0); eGFR CKD-EPI 54.2 (>60)
[2024-03-19 06:48] LABS: ABS Eosinophils 0.2 10^3/uL (0.0-0.5); ABS Lymphocytes 0.6 10^3/uL (1.0-4.8); ABS Monocytes 0.5 10^3/uL (0.0-0.9); ABS Neutrophils 3.8 10^3/uL (1.5-7.6); Eosinophil % 4.4 %; Hematocrit 41.4 % (35-45); Hemoglobin 13.4 g/dL (11.5-14.3); Lymphocyte % 12.3 %; Mean Corpuscular Hemoglobin 26.4 pg (27-33); Mean Corpuscular Hgb Conc 32.3 g/dL (31-36); Mean Corpuscular Volume 81.9 fL (80-97); Mean Platelet Volume 8.1 fL (7.5-11.2); Nucleated Red Blood Cells % 0.1 %/100WBC (0.0-0.8); Platelet Count 307 10^3/uL (150-450); Red Blood Count 5.05 10^6/uL (3.63-4.92); Red Cell Distribution Width 17.7 % (12-17); White Blood Count 5.2 10^3/uL (3.8-11.8)
[2024-03-19 07:17] LABS: Calcium 9.8 mg/dL (8.6-10.3); Creatinine, Serum 1.02 mg/dL (0.51-0.95); Potassium 4.2 mmol/L (3.5-5.0); eGFR CKD-EPI 62.6 (>60)
[2024-03-19 10:08] LABS: Magnesium 1.7 mg/dL (1.9-2.7)
[2024-03-19] MEDS: Magnesium Sulfate 2 gm BAG 2 GM/50 ML BAG IVPB ONE (10:52)
[2024-03-19] MEDS ORDERED: Budesonide Flexhaler 90 (NF) 90 MCG/ACT MDI INH SCH (19:00)
[2024-03-19] MEDS: Budesonide NEB 0.5 MG/2 ML NEB.SOLN INH SCH (19:52)
[2024-03-19] MEDS: oxyCODONE SR 10 mg TAB PO PRN (21:50)
[2024-03-20 09:40] LABS: ABS Eosinophils 0.3 10^3/uL (0.0-0.5); ABS Lymphocytes 0.6 10^3/uL (1.0-4.8); ABS Monocytes 0.4 10^3/uL (0.0-0.9); ABS Neutrophils 3.4 10^3/uL (1.5-7.6); ABS Nucleated RBC 0.01 10^3/ul; Eosinophil % 6.3 %; Hemoglobin 14.9 g/dL (11.5-14.3); Lymphocyte % 12.3 %; Mean Corpuscular Hemoglobin 25.6 pg (27-33); Mean Corpuscular Volume 82.6 fL (80-97); Mean Platelet Volume 8.1 fL (7.5-11.2); Nucleated Red Blood Cells % 0.2 %/100WBC (0.0-0.8); Platelet Count 263 10^3/uL (150-450); Red Blood Count 5.81 10^6/uL (3.63-4.92); Red Cell Distribution Width 18.7 % (12-17); White Blood Count 4.7 10^3/uL (3.8-11.8)
[2024-03-20 12:33] LABS: Albumin 4.2 g/dL (3.2-5.2); Albumin/Globulin Ratio 1.4 (1-3); Calcium 10.3 mg/dL (8.6-10.3); Creatinine, Serum 0.99 mg/dL (0.51-0.95); Globulin 3.1 g/dL (2-4); Potassium 4.4 mmol/L (3.5-5.0); Total Bilirubin 0.7 mg/dL (0.2-1.0); Total Protein 7.3 g/dL (6.4-8.9); eGFR CKD-EPI 64.9 (>60)
[2024-03-21 09:06] LABS: ABS Eosinophils 0.4 10^3/uL (0.0-0.5); ABS Lymphocytes 0.7 10^3/uL (1.0-4.8); ABS Monocytes 0.5 10^3/uL (0.0-0.9); ABS Neutrophils 3.9 10^3/uL (1.5-7.6); Eosinophil % 7.9 %; Hematocrit 42.2 % (35-45); Hemoglobin 13.5 g/dL (11.5-14.3); Lymphocyte % 12.1 %; Mean Corpuscular Hemoglobin 26.3 pg (27-33); Mean Corpuscular Hgb Conc 31.9 g/dL (31-36); Mean Corpuscular Volume 82.2 fL (80-97); Mean Platelet Volume 7.9 fL (7.5-11.2); Platelet Count 284 10^3/uL (150-450); Red Blood Count 5.13 10^6/uL (3.63-4.92); Red Cell Distribution Width 18.4 % (12-17); White Blood Count 5.5 10^3/uL (3.8-11.8)
[2024-03-21 09:19] LABS: Creatinine, Serum 1.13 mg/dL (0.51-0.95); Magnesium 1.8 mg/dL (1.9-2.7); Potassium 4.4 mmol/L (3.5-5.0); eGFR CKD-EPI 55.4 (>60)
[2024-03-22 07:36] LABS: Hematocrit 44.7 % (35-45); Hemoglobin 14.4 g/dL (11.5-14.3); Mean Corpuscular Hemoglobin 26.5 pg (27-33); Mean Corpuscular Hgb Conc 32.1 g/dL (31-36); Mean Corpuscular Volume 82.4 fL (80-97); Mean Platelet Volume 8.1 fL (7.5-11.2); Platelet Count 298 10^3/uL (150-450); Red Blood Count 5.43 10^6/uL (3.63-4.92); Red Cell Distribution Width 18.8 % (12-17); White Blood Count 4.7 10^3/uL (3.8-11.8)
[2024-03-22 08:34] LABS: Calcium 10.2 mg/dL (8.6-10.3); Creatinine, Serum 1.14 mg/dL (0.51-0.95); Magnesium 1.7 mg/dL (1.9-2.7); Potassium 4.9 mmol/L (3.5-5.0); eGFR CKD-EPI 54.8 (>60)
[2024-03-23 08:03] LABS: ABS Basophils 0.1 10^3/uL (0.0-0.1); ABS Eosinophils 0.6 10^3/uL (0.0-0.5); ABS Lymphocytes 0.6 10^3/uL (1.0-4.8); ABS Monocytes 0.6 10^3/uL (0.0-0.9); ABS Neutrophils 4.4 10^3/uL (1.5-7.6); ABS Nucleated RBC 0.01 10^3/ul; Eosinophil % 9.3 %; Lymphocyte % 9.1 %; Mean Corpuscular Hemoglobin 26.1 pg (27-33); Mean Corpuscular Hgb Conc 31.8 g/dL (31-36); Mean Corpuscular Volume 81.9 fL (80-97); Mean Platelet Volume 8.2 fL (7.5-11.2); Nucleated Red Blood Cells % 0.1 %/100WBC (0.0-0.8); Platelet Count 255 10^3/uL (150-450); Red Blood Count 5.37 10^6/uL (3.63-4.92); Red Cell Distribution Width 18.4 % (12-17); White Blood Count 6.2 10^3/uL (3.8-11.8)
[2024-03-23 08:39] LABS: Calcium 10.1 mg/dL (8.6-10.3); Creatinine, Serum 1.05 mg/dL (0.51-0.95); Magnesium 1.7 mg/dL (1.9-2.7); Potassium 4.2 mmol/L (3.5-5.0); eGFR CKD-EPI 60.5 (>60)
[2024-03-24] MEDS: NS 0.9% 1000 ml BAG 1,000 ML IV SCH (07:33)
[2024-03-24 09:49] LABS: ABS Eosinophils 0.7 10^3/uL (0.0-0.5); ABS Lymphocytes 0.6 10^3/uL (1.0-4.8); ABS Monocytes 0.4 10^3/uL (0.0-0.9); ABS Neutrophils 4.4 10^3/uL (1.5-7.6); ABS Nucleated RBC 0.01 10^3/ul; Eosinophil % 11.2 %; Hematocrit 43.8 % (35-45); Hemoglobin 14.1 g/dL (11.5-14.3); Lymphocyte % 9.3 %; Mean Corpuscular Hemoglobin 26.3 pg (27-33); Mean Corpuscular Hgb Conc 32.1 g/dL (31-36); Mean Corpuscular Volume 81.9 fL (80-97); Mean Platelet Volume 8.3 fL (7.5-11.2); Nucleated Red Blood Cells % 0.1 %/100WBC (0.0-0.8); Platelet Count 290 10^3/uL (150-450); Red Blood Count 5.36 10^6/uL (3.63-4.92); Red Cell Distribution Width 18.7 % (12-17); White Blood Count 6.1 10^3/uL (3.8-11.8)
[2024-03-24 10:26] LABS: Calcium 10.2 mg/dL (8.6-10.3); Creatinine, Serum 1.1 mg/dL (0.51-0.95); Potassium 4.4 mmol/L (3.5-5.0); eGFR CKD-EPI 57.2 (>60)
[2024-03-25 06:39] LABS: Hematocrit 43.2 % (35-45); Hemoglobin 13.9 g/dL (11.5-14.3); Mean Corpuscular Hemoglobin 26.5 pg (27-33); Mean Corpuscular Hgb Conc 32.3 g/dL (31-36); Mean Corpuscular Volume 82.2 fL (80-97); Mean Platelet Volume 8.7 fL (7.5-11.2); Platelet Count 278 10^3/uL (150-450); Red Blood Count 5.26 10^6/uL (3.63-4.92); White Blood Count 5.4 10^3/uL (3.8-11.8)
[2024-03-25 07:01] LABS: Creatinine, Serum 1.33 mg/dL (0.51-0.95); Magnesium 1.8 mg/dL (1.9-2.7); Potassium 4.4 mmol/L (3.5-5.0); eGFR CKD-EPI 45.5 (>60)
[2024-03-25] MEDS: Budesonide NEB 0.5 MG/2 ML NEB.SOLN ONE (08:32)
[2024-03-25] MEDS: Magnesium Sulfate 2 gm BAG 2 GM/50 ML BAG IVPB ONE (18:21)
[2024-03-26 06:19] VITALS: BP 95/62
== END 2024-03-26 10:00 | DRG 3 ==
LOC: ED 20:03 → SUATTDRO 03-01 11:07 → EDHOLD 03-01 11:07 → ICU 03-01 11:22 → SSU 03-14 12:00
PROVIDERS: ADMIT Internal Medicine Critical Care Medicine; ATTEND Student in an Organized Health Care Education/Training Program

== ENCOUNTER 2024-03-26 07:03 | Inpatient (IN) ==
[2024-03-26] MEDS ORDERED: Senna TAB 8.6 mg TAB PO PRN (11:15)
[2024-03-26] MEDS ORDERED: Albuterol HFA INHALER 8 gm MDI INH PRN (11:27)
[2024-03-26] MEDS: oxyCODONE SR 10 mg TAB PO PRN (21:20)
[2024-03-27] MEDS: Tiotropium Brom/Olodaterol MDI (ACUTE) INH SCH (07:18)
[2024-03-27] MEDS: Nystatin TOP POWDER 15 GM BTL TOPICAL SCH (21:54)
[2024-03-28 08:51] LABS: ABS Basophils 0.1 10^3/uL (0.0-0.1); ABS Eosinophils 0.1 10^3/uL (0.0-0.5); ABS Lymphocytes 0.3 10^3/uL (1.0-4.8); ABS Monocytes 0.5 10^3/uL (0.0-0.9); ABS Neutrophils 7.7 10^3/uL (1.5-7.6); Eosinophil % 1.4 %; Hematocrit 41.7 % (35-45); Hemoglobin 13.3 g/dL (11.5-14.3); Lymphocyte % 3.5 %; Mean Corpuscular Hemoglobin 26.2 pg (27-33); Mean Platelet Volume 8.3 fL (7.5-11.2); Platelet Count 207 10^3/uL (150-450); Red Blood Count 5.09 10^6/uL (3.63-4.92); Red Cell Distribution Width 19.5 % (12-17); White Blood Count 8.7 10^3/uL (3.8-11.8)
[2024-03-28 09:08] LABS: Albumin 3.7 g/dL (3.2-5.2); Albumin/Globulin Ratio 1.3 (1-3); Calcium 9.7 mg/dL (8.6-10.3); Creatinine, Serum 1.06 mg/dL (0.51-0.95); Globulin 2.8 g/dL (2-4); Potassium 4.1 mmol/L (3.5-5.0); Total Bilirubin 0.9 mg/dL (0.2-1.0); Total Protein 6.5 g/dL (6.4-8.9); eGFR CKD-EPI 59.8 (>60)
[2024-03-28] MEDS: Budesonide NEB 0.5 MG/2 ML NEB.SOLN INH SCH (11:26)
[2024-03-28] MEDS ORDERED: Ondansetron 4 mg VIAL 2 MG/ML 2 ml VIAL IV PRN (15:15)
[2024-03-28] MEDS ORDERED: Zosyn per Pharmacy NOTE FOLLOW UP SCH (16:00)
[2024-03-28] MEDS: Piperacillin/Tazobac 3.375 BAG 3.375 GM/100 ML BAG IV ONE (16:32)
[2024-03-28 19:28] LABS: Urine Appearance Turbid; Urine Bilirubin Negative (Negative); Urine Blood 3+ (Negative); Urine Glucose Negative (Negative); Urine Ketones Negative (Negative); Urine Nitrite 2+ (Negative); Urine Protein 1+ (>=30 mg/dL) (Negative); Urine Specific Gravity 1.015 (1.002-1.030); Urine Urobilinogen Negative (Negative); Urine pH 7.5 (5.0-8.0)
[2024-03-28 19:33] LABS: Urine Bacteria 3+ /HPF (Absent); Urine Red Blood Cell Trace(0-2/hpf) /HPF (0-Trace); Urine Squamous Epithelial Cell Present /HPF (Absent); Urine White Blood Cell 3+(>20/hpf) /HPF (0-Trace)
[2024-03-28 19:34] LABS: Urine Color Light-Orange
[2024-03-28] MEDS: ZOSYN 3.375 GM Q8H per EXTENDED INFUSION IV SCH (21:02)
[2024-03-30 05:20] LABS: Hematocrit 37.1 % (35-45); Mean Corpuscular Hemoglobin 26.3 pg (27-33); Mean Corpuscular Hgb Conc 32.4 g/dL (31-36); Mean Platelet Volume 8.1 fL (7.5-11.2); Platelet Count 168 10^3/uL (150-450); Red Blood Count 4.57 10^6/uL (3.63-4.92); Red Cell Distribution Width 19.1 % (12-17)
[2024-03-30 05:58] LABS: Creatinine, Serum 1.13 mg/dL (0.51-0.95); Potassium 3.5 mmol/L (3.5-5.0); eGFR CKD-EPI 55.4 (>60)
[2024-03-30 07:01] LABS: ABS Basophils 0.1 10^3/uL (0.0-0.1); ABS Eosinophils 0.7 10^3/uL (0.0-0.5); ABS Lymphocytes 0.7 10^3/uL (1.0-4.8); ABS Neutrophils 2.6 10^3/uL (1.5-7.6); Anisocytosis 1+; Eosinophil % 14.1 %; Lymphocyte % 13.5 %
[2024-04-02] MEDS: Mometasone/Formoter 200/5 MDI INH SCH (13:11)
[2024-04-04 07:41] LABS: ABS Basophils 0.1 10^3/uL (0.0-0.1); ABS Eosinophils 0.6 10^3/uL (0.0-0.5); ABS Lymphocytes 0.8 10^3/uL (1.0-4.8); ABS Monocytes 0.7 10^3/uL (0.0-0.9); ABS Neutrophils 5.3 10^3/uL (1.5-7.6); Eosinophil % 8.5 %; Hematocrit 38.6 % (35-45); Hemoglobin 12.3 g/dL (11.5-14.3); Lymphocyte % 10.6 %; Mean Corpuscular Hemoglobin 26.3 pg (27-33); Mean Corpuscular Hgb Conc 31.7 g/dL (31-36); Mean Corpuscular Volume 82.8 fL (80-97); Mean Platelet Volume 7.8 fL (7.5-11.2); Platelet Count 241 10^3/uL (150-450); Red Blood Count 4.66 10^6/uL (3.63-4.92); Red Cell Distribution Width 19.9 % (12-17); White Blood Count 7.5 10^3/uL (3.8-11.8)
[2024-04-04 07:59] LABS: Albumin 3.5 g/dL (3.2-5.2); Albumin/Globulin Ratio 1.5 (1-3); Calcium 9.1 mg/dL (8.6-10.3); Creatinine, Serum 0.93 mg/dL (0.51-0.95); Globulin 2.3 g/dL (2-4); Potassium 3.6 mmol/L (3.5-5.0); Total Bilirubin 0.4 mg/dL (0.2-1.0); Total Protein 5.8 g/dL (6.4-8.9); eGFR CKD-EPI 69.9 (>60)
[2024-04-10 05:29] VITALS: BP 107/59
== END 2024-04-10 13:30 | disposition home or self-care (01) | DRG 193 ==
LOC: PMRU 10:24
PROVIDERS: ADMIT Physical Medicine & Rehabilitation; ATTEND Physical Medicine & Rehabilitation

== ENCOUNTER 2024-05-24 11:38 | Inpatient (IN) ==
[2024-05-24] MEDS: Lactated Ringers 1000 ml BAG 1,000 ML IV ONE (18:06)
[2024-05-24 18:43] LABS: ABS Basophils 0.1 10^3/uL (0.0-0.1); ABS Eosinophils 0.3 10^3/uL (0.0-0.5); ABS Lymphocytes 0.6 10^3/uL (1.0-4.8); ABS Neutrophils 6.6 10^3/uL (1.5-7.6); Eosinophil % 3.3 %; Hematocrit 44.6 % (35-45); Lymphocyte % 7.5 %; Mean Corpuscular Hemoglobin 26.5 pg (27-33); Mean Corpuscular Hgb Conc 31.4 g/dL (31-36); Mean Corpuscular Volume 84.2 fL (80-97); Mean Platelet Volume 7.8 fL (7.5-11.2); Platelet Count 300 10^3/uL (150-450); Red Blood Count 5.29 10^6/uL (3.63-4.92); Red Cell Distribution Width 18.1 % (12-17); White Blood Count 8.7 10^3/uL (3.8-11.8)
[2024-05-24 19:25] LABS: Albumin 3.3 g/dL (3.2-5.2); Albumin/Globulin Ratio 1.4 (1-3); Calcium 9.3 mg/dL (8.6-10.3); Creatinine, Serum 0.95 mg/dL (0.51-0.95); Globulin 2.4 g/dL (2-4); Total Bilirubin 0.7 mg/dL (0.2-1.0); Total Protein 5.7 g/dL (6.4-8.9); eGFR CKD-EPI 68.2 (>60)
[2024-05-24] MEDS ORDERED: Zosyn per Pharmacy NOTE FOLLOW UP SCH (21:00)
[2024-05-24] MEDS: Piperacillin/Tazobac 3.375 BAG 3.375 GM/100 ML BAG IV ONE (21:10)
[2024-05-25] MEDS: ZOSYN 3.375 GM Q8H per EXTENDED INFUSION IV SCH (00:55)
[2024-05-25] MEDS ORDERED: Piperacillin/Tazobac 3.375 BAG 3.375 GM/100 ML BAG IV ONE (02:00)
[2024-05-25 04:55] LABS: ABS Eosinophils 0.3 10^3/uL (0.0-0.5); ABS Lymphocytes 0.7 10^3/uL (1.0-4.8); ABS Neutrophils 6.3 10^3/uL (1.5-7.6); ABS Nucleated RBC 0.01 10^3/ul; Eosinophil % 3.4 %; Hematocrit 44.3 % (35-45); Hemoglobin 13.8 g/dL (11.5-14.3); Mean Corpuscular Hemoglobin 26.3 pg (27-33); Mean Corpuscular Hgb Conc 31.2 g/dL (31-36); Mean Corpuscular Volume 84.3 fL (80-97); Mean Platelet Volume 7.9 fL (7.5-11.2); Nucleated Red Blood Cells % 0.1 %/100WBC (0.0-0.8); Platelet Count 287 10^3/uL (150-450); Red Blood Count 5.25 10^6/uL (3.63-4.92); White Blood Count 8.3 10^3/uL (3.8-11.8)
[2024-05-25 05:02] LABS: Activated Partial Thrombo Time 32.3 seconds (26.0-38.0); INR 1.38 (0.85-1.14)
[2024-05-25 05:28] LABS: Calcium 8.5 mg/dL (8.6-10.3); Creatinine, Serum 0.9 mg/dL (0.51-0.95); Potassium 3.5 mmol/L (3.5-5.0); eGFR CKD-EPI 72.7 (>60)
[2024-05-25] MEDS: Acetaminophen IV 1 GM/100ML 1,000 MG/100 ML BAG IV PRN (10:54)
[2024-05-25] MEDS: Tiotropium Brom/Olodaterol MDI (ACUTE) INH SCH (11:20)
[2024-05-25] MEDS: Nystatin TOP POWDER 15 GM BTL TOPICAL SCH (11:42)
[2024-05-25] MEDS ORDERED: Clotrimazole 1% CREAM 45 GM TOPICAL SCH (12:30)
[2024-05-25] MEDS: Clotrimazole 1% CREAM 45 GM TOPICAL SCH (15:04)
[2024-05-26 02:54] LABS: ABS Eosinophils 0.6 10^3/uL (0.0-0.5); ABS Lymphocytes 0.5 10^3/uL (1.0-4.8); ABS Monocytes 0.8 10^3/uL (0.0-0.9); ABS Neutrophils 6.3 10^3/uL (1.5-7.6); Eosinophil % 6.8 %; Hemoglobin 13.7 g/dL (11.5-14.3); Lymphocyte % 6.2 %; Mean Corpuscular Hemoglobin 26.6 pg (27-33); Mean Corpuscular Hgb Conc 31.2 g/dL (31-36); Mean Corpuscular Volume 85.2 fL (80-97); Mean Platelet Volume 7.8 fL (7.5-11.2); Platelet Count 276 10^3/uL (150-450); Red Blood Count 5.16 10^6/uL (3.63-4.92); Red Cell Distribution Width 17.9 % (12-17); White Blood Count 8.1 10^3/uL (3.8-11.8)
[2024-05-26 03:23] LABS: Calcium 7.8 mg/dL (8.6-10.3); Creatinine, Serum 1.09 mg/dL (0.51-0.95); Magnesium 1.6 mg/dL (1.9-2.7); Potassium 3.3 mmol/L (3.5-5.0); eGFR CKD-EPI 57.8 (>60)
[2024-05-26] MEDS: Magnesium Sulfate 2 gm BAG 2 GM/50 ML BAG IVPB ONE (04:00)
[2024-05-26] MEDS: KCL 10 MEQ/50 ML IVPREMIX 10 MEQ/50 ML BAG IV SCH (04:36)
[2024-05-26] MEDS: NS 0.9% 500 ml BAG 500 ML IV SCH (08:18)
[2024-05-26] MEDS: Albuterol HFA INHALER 8 gm MDI INH PRN (09:07)
[2024-05-26] MEDS: Nystatin TOP POWDER 15 GM BTL TOPICAL SCH (09:38)
[2024-05-26] MEDS: Potassium EFFERVES 25 meq TAB PO ONE (10:06)
[2024-05-26 12:34] LABS: Albumin 2.9 g/dL (3.2-5.2); Albumin/Globulin Ratio 1.5 (1-3); Total Bilirubin 0.6 mg/dL (0.2-1.0); Total Protein 4.9 g/dL (6.4-8.9)
[2024-05-26 20:19] LABS: Calcium 8.9 mg/dL (8.6-10.3); Magnesium 2.2 mg/dL (1.9-2.7); Potassium 4.7 mmol/L (3.5-5.0); eGFR CKD-EPI 64.1 (>60)
[2024-05-27 06:21] LABS: ABS Basophils 0.1 10^3/uL (0.0-0.1); ABS Eosinophils 0.5 10^3/uL (0.0-0.5); ABS Lymphocytes 0.6 10^3/uL (1.0-4.8); ABS Monocytes 0.8 10^3/uL (0.0-0.9); ABS Neutrophils 5.2 10^3/uL (1.5-7.6); Hematocrit 44.3 % (35-45); Hemoglobin 13.9 g/dL (11.5-14.3); Mean Corpuscular Hemoglobin 26.9 pg (27-33); Mean Corpuscular Hgb Conc 31.4 g/dL (31-36); Mean Corpuscular Volume 85.7 fL (80-97); Mean Platelet Volume 8.4 fL (7.5-11.2); Platelet Count 295 10^3/uL (150-450); Red Blood Count 5.17 10^6/uL (3.63-4.92); Red Cell Distribution Width 17.8 % (12-17); White Blood Count 7.1 10^3/uL (3.8-11.8)
[2024-05-27 06:37] LABS: Calcium 9.1 mg/dL (8.6-10.3); Creatinine, Serum 0.95 mg/dL (0.51-0.95); Magnesium 2.2 mg/dL (1.9-2.7); Potassium 4.5 mmol/L (3.5-5.0); eGFR CKD-EPI 68.2 (>60)
[2024-05-27] MEDS ORDERED: Vancomycin 1,000 MG in NS 0.9% 250 ml 250 ML IVPB ONE (14:22)
[2024-05-27] MEDS ORDERED: Vancomycin per Pharmacy 1 EA NOTE FOLLOW UP SCH (15:00)
[2024-05-27] MEDS: Vancomycin 1500 MG IV - x ONCE IVPB ONE ×2 (17:46→17:47)
[2024-05-28] MEDS: Vancomycin 1000 MG in NS 0.9% 250 ML IVPB SCH (05:39)
[2024-05-28 09:03] LABS: ABS Basophils 0.1 10^3/uL (0.0-0.1); ABS Eosinophils 0.6 10^3/uL (0.0-0.5); ABS Lymphocytes 0.6 10^3/uL (1.0-4.8); ABS Monocytes 0.7 10^3/uL (0.0-0.9); Eosinophil % 8.5 %; Hematocrit 43.8 % (35-45); Hemoglobin 13.5 g/dL (11.5-14.3); Lymphocyte % 8.3 %; Mean Corpuscular Hemoglobin 26.7 pg (27-33); Mean Corpuscular Hgb Conc 30.9 g/dL (31-36); Mean Corpuscular Volume 86.5 fL (80-97); Mean Platelet Volume 7.9 fL (7.5-11.2); Platelet Count 306 10^3/uL (150-450); Red Blood Count 5.06 10^6/uL (3.63-4.92); Red Cell Distribution Width 18.3 % (12-17)
[2024-05-28 09:49] LABS: Calcium 9.4 mg/dL (8.6-10.3); Creatinine, Serum 0.81 mg/dL (0.51-0.95); Potassium 5.1 mmol/L (3.5-5.0); eGFR CKD-EPI 82.5 (>60)
[2024-05-28] MEDS: Albuterol/Ipratropium NEB.SOL (2.5/0.5 MG) 3 ML NEB.SOLN INH SCH (13:35)
[2024-05-28] MEDS: Furosemide 40 mg/4 ml IV VIAL IV ONE (18:03)
[2024-05-28] MEDS: SODIUM ZIRCONIUM CYCLOSILICATE 10 GM PACKET PO ONE (18:03)
[2024-05-28 19:07] LABS: Urine Appearance Turbid; Urine Bilirubin Negative (Negative); Urine Blood 3+ (Negative); Urine Color Light-Yellow; Urine Glucose Negative (Negative); Urine Ketones Negative (Negative); Urine Nitrite Negative (Negative); Urine Protein Trace (Negative); Urine Specific Gravity 1.018 (1.002-1.030); Urine Urobilinogen Negative (Negative)
[2024-05-28 19:35] LABS: Urine Amorphous Crystals Present /HPF (Absent); Urine Bacteria 1+ /HPF (Absent); Urine Red Blood Cell 3+(>10/hpf) /HPF (0-Trace); Urine Squamous Epithelial Cell Present /HPF (Absent); Urine White Blood Cell 3+(>20/hpf) /HPF (0-Trace)
[2024-05-28] MEDS: Hyaluronidase HUMAN 15 UNIT in Sodium Chloride 0.9% 0.9 ML INTRADERM ONE (21:28)
[2024-05-29] MEDS: Albuterol/Ipratropium NEB.SOL (2.5/0.5 MG) 3 ML NEB.SOLN INH PRN (04:50)
[2024-05-29] MEDS: Vancomycin Trough Check NOTE FOLLOW UP ONE (06:41)
[2024-05-29] MEDS: cefTRIAXone 1 gm/50 mL D5W 1 GM/50 ML BAG IV SCH (09:14)
[2024-05-29 09:38] LABS: Anion Gap 16 mmol/L (2-16); Blood Urea Nitrogen 20 mg/dL (6-24); CO2 Carbon Dioxide 29 mmol/L (22-32); Chloride 94 mmol/L (101-111); Glucose 108 mg/dL (70-100); Sodium 139 mmol/L (135-145); eGFR CKD-EPI 72.7 (>60)
[2024-05-29 12:57] LABS: Creatinine, Serum 1.05 mg/dL (0.51-0.95); Magnesium 1.6 mg/dL (1.9-2.7); eGFR CKD-EPI 60.5 (>60)
[2024-05-29] MEDS: Chlorhexidine MOUTHWASH 0.12% 15 ML UDC TOPICAL SCH (13:43)
[2024-05-29] MEDS: Magnesium Sulfate 2 gm BAG 2 GM/50 ML BAG IVPB ONE (13:43)
[2024-05-29] MEDS: Famotidine IV 10 MG/ML 2 ml VIAL (20 mg) IV SLOW PU SCH (13:43)
[2024-05-29] MEDS: Magnesium Sulfate IV 1GM/100ML 1 GM/100 ML BAG IV ONE (15:05)
[2024-05-29] MEDS: Lactated Ringers 1000 ml BAG 1,000 ML IV ONE (16:03)
[2024-05-29] MEDS: methylPREDNISolone SOD SUCC 40 mg/ml 1 ml VIAL IV SCH (17:19)
[2024-05-29] MEDS: Enoxaparin 40 MG/0.4 ML SYR SUBCUT SCH (19:25)
[2024-05-29] MEDS ORDERED: Enoxaparin 40 MG/0.4 ML SYR SUBCUT SCH (21:00)
[2024-05-30 02:43] LABS: Urine Appearance Turbid; Urine Bilirubin Negative (Negative); Urine Blood 3+ (Negative); Urine Glucose Negative (Negative); Urine Ketones Trace (Negative); Urine Nitrite Negative (Negative); Urine Protein 1+ (>=30 mg/dL) (Negative); Urine Specific Gravity 1.022 (1.002-1.030); Urine Urobilinogen Negative (Negative)
[2024-05-30 03:18] LABS: Urine Bacteria 1+ /HPF (Absent); Urine Red Blood Cell 3+(>10/hpf) /HPF (0-Trace); Urine Squamous Epithelial Cell Present /HPF (Absent); Urine White Blood Cell 3+(>20/hpf) /HPF (0-Trace)
[2024-05-30 03:19] LABS: Urine Color Dark-Yellow
[2024-05-30 04:53] LABS: Hematocrit 38.8 % (35-45); Hemoglobin 12.3 g/dL (11.5-14.3); Mean Corpuscular Hemoglobin 26.7 pg (27-33); Mean Corpuscular Hgb Conc 31.8 g/dL (31-36); Mean Corpuscular Volume 83.9 fL (80-97); Platelet Count 254 10^3/uL (150-450); Red Blood Count 4.62 10^6/uL (3.63-4.92); Red Cell Distribution Width 17.4 % (12-17); White Blood Count 6.9 10^3/uL (3.8-11.8)
[2024-05-30 06:00] LABS: Anion Gap 9 mmol/L (2-16); Blood Urea Nitrogen 24 mg/dL (6-24); CO2 Carbon Dioxide 31 mmol/L (22-32); Calcium 8.9 mg/dL (8.6-10.3); Chloride 100 mmol/L (101-111); Creatinine, Serum 0.92 mg/dL (0.51-0.95); Glucose 116 mg/dL (70-100); Sodium 140 mmol/L (135-145); eGFR CKD-EPI 70.8 (>60)
[2024-05-30 09:12] LABS: Magnesium 2.3 mg/dL (1.9-2.7); Phosphorus 3.5 mg/dL (2.5-5.0); Potassium 4.5 mmol/L (3.5-5.0)
[2024-05-30] MEDS: Furosemide 40 mg/4 ml IV VIAL IV SLOW PU ONE ×2 (09:58→16:31)
[2024-05-30] MEDS ORDERED: Morphine 2 MG/ML SYRINGE IV PRN ×3 (11:28→11:30)
[2024-05-30] MEDS ORDERED: Metoprolol Tartrate 5 mg VIAL 5 ml VIAL (1 mg/ml) IV PRN (16:00)
[2024-05-30] MEDS: Metoprolol Tartrate 5 mg VIAL 5 ml VIAL (1 mg/ml) IV SCH (16:28)
[2024-05-30 16:43] LABS: Calcium 9.3 mg/dL (8.6-10.3); Creatinine, Serum 0.98 mg/dL (0.51-0.95); Magnesium 2.2 mg/dL (1.9-2.7); Potassium 3.9 mmol/L (3.5-5.0); eGFR CKD-EPI 65.7 (>60)
[2024-05-30] MEDS: Furosemide 40 mg/4 ml IV VIAL ONE (16:46)
[2024-05-30] MEDS: KCL 20 MEQ/100 ML IVPREMIX 20 MEQ/100 ML BAG IV SCH (16:55)
[2024-05-30] MEDS: KCL 20 MEQ/100 ML IVPREMIX 20 MEQ/100 ML BAG ONE (18:02)
[2024-05-30] MEDS ORDERED: Albuterol/Ipratropium NEB.SOL (2.5/0.5 MG) 3 ML NEB.SOLN INH SCH (19:00)
[2024-05-31 05:53] LABS: ABS Lymphocytes 0.5 10^3/uL (1.0-4.8); ABS Monocytes 0.8 10^3/uL (0.0-0.9); ABS Neutrophils 6.3 10^3/uL (1.5-7.6); Eosinophil % 0.6 %; Hematocrit 38.8 % (35-45); Hemoglobin 12.5 g/dL (11.5-14.3); Mean Corpuscular Hgb Conc 32.2 g/dL (31-36); Mean Corpuscular Volume 83.7 fL (80-97); Mean Platelet Volume 7.7 fL (7.5-11.2); Platelet Count 261 10^3/uL (150-450); Red Blood Count 4.64 10^6/uL (3.63-4.92); Red Cell Distribution Width 17.3 % (12-17); White Blood Count 7.6 10^3/uL (3.8-11.8)
[2024-05-31 06:21] LABS: Calcium 9.4 mg/dL (8.6-10.3); Creatinine, Serum 2.45 mg/dL (0.51-0.95); Potassium 3.8 mmol/L (3.5-5.0); eGFR CKD-EPI 21.9 (>60)
[2024-05-31] MEDS: Pantoprazole VIAL 40 MG VIAL IV SCH (08:12)
[2024-05-31] MEDS: KCL 20 MEQ/100 ML IVPREMIX 20 MEQ/100 ML BAG IV ONE (08:15)
[2024-05-31 18:18] LABS: Creatinine, Serum 0.81 mg/dL (0.51-0.95); Vancomycin Trough 20.3 mcg/mL; eGFR CKD-EPI 82.5 (>60)
[2024-05-31] MEDS: Enoxaparin 30 MG/0.3 ML SYR SUBCUT SCH (20:17)
[2024-06-01 04:28] LABS: ABS Lymphocytes 0.5 10^3/uL (1.0-4.8); ABS Monocytes 0.6 10^3/uL (0.0-0.9); ABS Neutrophils 5.8 10^3/uL (1.5-7.6); Eosinophil % 0.3 %; Hematocrit 40.5 % (35-45); Hemoglobin 12.9 g/dL (11.5-14.3); Lymphocyte % 6.9 %; Mean Corpuscular Hemoglobin 26.8 pg (27-33); Mean Corpuscular Hgb Conc 31.9 g/dL (31-36); Mean Corpuscular Volume 83.9 fL (80-97); Mean Platelet Volume 7.7 fL (7.5-11.2); Platelet Count 289 10^3/uL (150-450); Red Blood Count 4.83 10^6/uL (3.63-4.92); Red Cell Distribution Width 17.4 % (12-17); White Blood Count 6.9 10^3/uL (3.8-11.8)
[2024-06-01 05:19] LABS: Albumin 2.8 g/dL (3.2-5.2); Albumin/Globulin Ratio 1.5 (1-3); Creatinine, Serum 0.63 mg/dL (0.51-0.95); Globulin 1.9 g/dL (2-4); Magnesium 1.6 mg/dL (1.9-2.7); Potassium 3.5 mmol/L (3.5-5.0); Total Bilirubin 0.5 mg/dL (0.2-1.0); Total Protein 4.7 g/dL (6.4-8.9); Vancomycin Random 13.4 mcg/mL; eGFR CKD-EPI 100.9 (>60)
[2024-06-01] MEDS ORDERED: Vancomycin Trough Check NOTE FOLLOW UP ONE (05:30)
[2024-06-01] MEDS: Vancomycin Random Level NOTE FOLLOW UP ONE (06:31)
[2024-06-01] MEDS: Magnesium Sulf 4 GM/100 ML IV 4,000 MG/100 ML BAG IVPB ONE (06:48)
[2024-06-01] MEDS ORDERED: Sodium Phosphate ADULT ENEMA 133 ML BTL PR PRN (08:04)
[2024-06-01] MEDS: KCL 20 MEQ/100 ML IVPREMIX 20 MEQ/100 ML BAG IV ONE (08:43)
[2024-06-01] MEDS: Vancomycin 1000 MG in NS 0.9% 250 ML IVPB SCH (10:37)
[2024-06-02 04:32] LABS: ABS Lymphocytes 0.4 10^3/uL (1.0-4.8); ABS Monocytes 0.6 10^3/uL (0.0-0.9); ABS Neutrophils 5.6 10^3/uL (1.5-7.6); Eosinophil % 0.1 %; Hematocrit 42.5 % (35-45); Hemoglobin 13.5 g/dL (11.5-14.3); Lymphocyte % 6.3 %; Mean Corpuscular Hemoglobin 26.9 pg (27-33); Mean Corpuscular Hgb Conc 31.9 g/dL (31-36); Mean Corpuscular Volume 84.5 fL (80-97); Mean Platelet Volume 7.7 fL (7.5-11.2); Platelet Count 299 10^3/uL (150-450); Red Blood Count 5.03 10^6/uL (3.63-4.92); Red Cell Distribution Width 17.2 % (12-17); White Blood Count 6.7 10^3/uL (3.8-11.8)
[2024-06-02 04:58] LABS: Anion Gap 9 mmol/L (2-16); Blood Urea Nitrogen 17 mg/dL (6-24); CO2 Carbon Dioxide 32 mmol/L (22-32); Calcium 8.9 mg/dL (8.6-10.3); Chloride 102 mmol/L (101-111); Creatinine, Serum 0.69 mg/dL (0.51-0.95); Glucose 88 mg/dL (70-100); Magnesium 2.4 mg/dL (1.9-2.7); Sodium 143 mmol/L (135-145); eGFR CKD-EPI 98.7 (>60)
[2024-06-02 08:51] LABS: Anion Gap 9 mmol/L (2-16); Blood Urea Nitrogen 18 mg/dL (6-24); CO2 Carbon Dioxide 30 mmol/L (22-32); Calcium 9.4 mg/dL (8.6-10.3); Chloride 102 mmol/L (101-111); Glucose 78 mg/dL (70-100); Sodium 141 mmol/L (135-145); eGFR CKD-EPI 98.3 (>60)
[2024-06-02] MEDS: Ondansetron 4 mg VIAL 2 MG/ML 2 ml VIAL IV ONE (22:49)
[2024-06-02] MEDS: Ondansetron 4 mg VIAL 2 MG/ML 2 ml VIAL ONE (22:50)
[2024-06-03 04:36] LABS: ABS Lymphocytes 0.4 10^3/uL (1.0-4.8); ABS Monocytes 0.7 10^3/uL (0.0-0.9); ABS Neutrophils 9.2 10^3/uL (1.5-7.6); ABS Nucleated RBC 0.01 10^3/ul; Eosinophil % 0.2 %; Hematocrit 47.4 % (35-45); Hemoglobin 15.1 g/dL (11.5-14.3); Lymphocyte % 4.1 %; Mean Corpuscular Hemoglobin 27.2 pg (27-33); Mean Corpuscular Hgb Conc 31.9 g/dL (31-36); Mean Corpuscular Volume 85.2 fL (80-97); Mean Platelet Volume 7.7 fL (7.5-11.2); Platelet Count 377 10^3/uL (150-450); Red Blood Count 5.56 10^6/uL (3.63-4.92); White Blood Count 10.4 10^3/uL (3.8-11.8)
[2024-06-03 04:56] LABS: Anion Gap 13 mmol/L (2-16); Blood Urea Nitrogen 20 mg/dL (6-24); CO2 Carbon Dioxide 27 mmol/L (22-32); Calcium 9.7 mg/dL (8.6-10.3); Chloride 101 mmol/L (101-111); Creatinine, Serum 0.72 mg/dL (0.51-0.95); Glucose 80 mg/dL (70-100); Sodium 141 mmol/L (135-145); eGFR CKD-EPI 95.1 (>60)
[2024-06-03 05:03] LABS: Potassium, Whole Blood 4.2 mmol/L (3.4-4.5)
[2024-06-03] MEDS: Ondansetron 4 mg VIAL 2 MG/ML 2 ml VIAL IV ONE (08:29)
[2024-06-03] MEDS: Vancomycin Trough Check NOTE FOLLOW UP ONE (09:03)
[2024-06-03] MEDS: Enoxaparin 100 MG/ML SYR SUBCUT SCH (09:40)
[2024-06-03] MEDS: Acetaminophen IV 1 GM/100ML 1,000 MG/100 ML BAG IV PRN (20:56)
[2024-06-04 07:56] LABS: ABS Lymphocytes 0.4 10^3/uL (1.0-4.8); ABS Monocytes 0.8 10^3/uL (0.0-0.9); ABS Neutrophils 8.1 10^3/uL (1.5-7.6); Eosinophil % 0.3 %; Hematocrit 47.4 % (35-45); Lymphocyte % 4.3 %; Mean Corpuscular Hemoglobin 27.1 pg (27-33); Mean Corpuscular Hgb Conc 31.8 g/dL (31-36); Mean Corpuscular Volume 85.3 fL (80-97); Mean Platelet Volume 7.5 fL (7.5-11.2); Platelet Count 342 10^3/uL (150-450); Red Blood Count 5.56 10^6/uL (3.63-4.92); Red Cell Distribution Width 17.3 % (12-17); White Blood Count 9.3 10^3/uL (3.8-11.8)
[2024-06-04 08:43] LABS: Calcium 10.2 mg/dL (8.6-10.3); Creatinine, Serum 0.77 mg/dL (0.51-0.95); Magnesium 1.8 mg/dL (1.9-2.7); Potassium 4.1 mmol/L (3.5-5.0); eGFR CKD-EPI 87.7 (>60)
[2024-06-04] MEDS: Magnesium Sulfate 2 gm BAG 2 GM/50 ML BAG IVPB ONE (11:12)
[2024-06-04] MEDS: Morphine 2 MG/ML SYRINGE IV ONE (23:52)
[2024-06-04] MEDS: guaiFENesin 100 mg/5 ml LIQ unit dose cup PO PRN (23:53)
[2024-06-05] MEDS: Iohexol 350 (CONTRAST) 500 ML MDV IV ONE (00:30)
[2024-06-05 02:36] LABS: Hematocrit 42.5 % (35-45); Hemoglobin 13.5 g/dL (11.5-14.3)
[2024-06-05 02:56] LABS: INR 1.58 (0.85-1.14)
[2024-06-05] MEDS: Morphine 2 MG/ML SYRINGE IV PRN (03:56)
[2024-06-05 08:39] LABS: ABS Basophils 0.1 10^3/uL (0.0-0.1); ABS Eosinophils 0.2 10^3/uL (0.0-0.5); ABS Lymphocytes 0.5 10^3/uL (1.0-4.8); ABS Monocytes 0.9 10^3/uL (0.0-0.9); ABS Neutrophils 9.3 10^3/uL (1.5-7.6); Eosinophil % 2.1 %; Hematocrit 42.9 % (35-45); Hemoglobin 13.5 g/dL (11.5-14.3); Lymphocyte % 4.4 %; Mean Corpuscular Hemoglobin 26.8 pg (27-33); Mean Corpuscular Hgb Conc 31.5 g/dL (31-36); Mean Corpuscular Volume 85.3 fL (80-97); Mean Platelet Volume 7.9 fL (7.5-11.2); Platelet Count 355 10^3/uL (150-450); Red Blood Count 5.02 10^6/uL (3.63-4.92)
[2024-06-05 08:52] LABS: Albumin 3.7 g/dL (3.2-5.2); Albumin/Globulin Ratio 1.6 (1-3); Calcium 9.9 mg/dL (8.6-10.3); Creatinine, Serum 0.62 mg/dL (0.51-0.95); Globulin 2.3 g/dL (2-4); Total Bilirubin 1.1 mg/dL (0.2-1.0); eGFR CKD-EPI 101.3 (>60)
[2024-06-05] MEDS: Sucralfate 1 gm SUSP 1 GM/10 ML UDC PO SCH (12:17)
[2024-06-06 05:59] LABS: ABS Basophils 0.1 10^3/uL (0.0-0.1); ABS Eosinophils 0.2 10^3/uL (0.0-0.5); ABS Lymphocytes 0.4 10^3/uL (1.0-4.8); ABS Neutrophils 11.6 10^3/uL (1.5-7.6); Eosinophil % 1.4 %; Hematocrit 40.1 % (35-45); Hemoglobin 12.5 g/dL (11.5-14.3); Lymphocyte % 3.3 %; Mean Corpuscular Hemoglobin 26.6 pg (27-33); Mean Corpuscular Hgb Conc 31.2 g/dL (31-36); Mean Corpuscular Volume 85.1 fL (80-97); Mean Platelet Volume 7.9 fL (7.5-11.2); Platelet Count 341 10^3/uL (150-450); Red Blood Count 4.71 10^6/uL (3.63-4.92); Red Cell Distribution Width 16.6 % (12-17); White Blood Count 13.4 10^3/uL (3.8-11.8)
[2024-06-06 06:10] LABS: Albumin 3.9 g/dL (3.2-5.2); Albumin/Globulin Ratio 1.6 (1-3); Creatinine, Serum 1.01 mg/dL (0.51-0.95); Globulin 2.5 g/dL (2-4); Magnesium 1.8 mg/dL (1.9-2.7); Potassium 3.8 mmol/L (3.5-5.0); Total Bilirubin 1.1 mg/dL (0.2-1.0); Total Protein 6.4 g/dL (6.4-8.9); eGFR CKD-EPI 63.3 (>60)
[2024-06-07 10:00] LABS: ABS Basophils 0.1 10^3/uL (0.0-0.1); ABS Eosinophils 0.2 10^3/uL (0.0-0.5); ABS Lymphocytes 0.4 10^3/uL (1.0-4.8); ABS Monocytes 1.3 10^3/uL (0.0-0.9); ABS Neutrophils 16.3 10^3/uL (1.5-7.6); ABS Nucleated RBC 0.01 10^3/ul; Eosinophil % 0.8 %; Hematocrit 32.9 % (35-45); Hemoglobin 10.4 g/dL (11.5-14.3); Lymphocyte % 2.2 %; Mean Corpuscular Hemoglobin 26.5 pg (27-33); Mean Corpuscular Hgb Conc 31.6 g/dL (31-36); Mean Corpuscular Volume 83.9 fL (80-97); Nucleated Red Blood Cells % 0.1 %/100WBC (0.0-0.8); Platelet Count 311 10^3/uL (150-450); Red Blood Count 3.92 10^6/uL (3.63-4.92); White Blood Count 18.2 10^3/uL (3.8-11.8)
[2024-06-07] MEDS ORDERED: Heparin 5000 UNITS/ML 1 mL VIAL IV SCH (10:00)
[2024-06-07] MEDS: Heparin DRIP 25,000 UNITS BAG 25,000 UNITS/250 ML BAG IV SCH (10:11)
[2024-06-07 10:40] LABS: Albumin 3.4 g/dL (3.2-5.2); Albumin/Globulin Ratio 1.5 (1-3); Calcium 9.3 mg/dL (8.6-10.3); Creatinine, Serum 1.11 mg/dL (0.51-0.95); Globulin 2.2 g/dL (2-4); Total Bilirubin 1.2 mg/dL (0.2-1.0); Total Protein 5.6 g/dL (6.4-8.9); eGFR CKD-EPI 56.6 (>60)
[2024-06-07 13:23] LABS: Urine Appearance Turbid; Urine Bilirubin Negative (Negative); Urine Blood 1+ (Negative); Urine Color Yellow; Urine Glucose Negative (Negative); Urine Ketones Negative (Negative); Urine Nitrite Negative (Negative); Urine Protein 1+ (>=30 mg/dL) (Negative); Urine Specific Gravity 1.029 (1.002-1.030); Urine Urobilinogen Negative (Negative); Urine pH 5.5 (5.0-8.0)
[2024-06-07 13:28] LABS: Urine Bacteria Absent /HPF (Absent); Urine Red Blood Cell 3+(>10/hpf) /HPF (0-Trace); Urine Squamous Epithelial Cell Present /HPF (Absent); Urine White Blood Cell 3+(>20/hpf) /HPF (0-Trace)
[2024-06-07] MEDS: NS 0.9% 1000 ml BAG 1,000 ML IV SCH (14:23)
[2024-06-07 16:19] LABS: Hemoglobin 9.9 g/dL (11.5-14.3)
[2024-06-08 05:36] LABS: ABS Basophils 0.1 10^3/uL (0.0-0.1); ABS Eosinophils 0.6 10^3/uL (0.0-0.5); ABS Lymphocytes 0.6 10^3/uL (1.0-4.8); ABS Monocytes 1.3 10^3/uL (0.0-0.9); ABS Neutrophils 10.6 10^3/uL (1.5-7.6); ABS Nucleated RBC 0.01 10^3/ul; Eosinophil % 4.9 %; Hematocrit 29.2 % (35-45); Hemoglobin 9.5 g/dL (11.5-14.3); Lymphocyte % 4.5 %; Mean Corpuscular Hemoglobin 27.5 pg (27-33); Mean Corpuscular Hgb Conc 32.7 g/dL (31-36); Mean Corpuscular Volume 84.1 fL (80-97); Platelet Count 314 10^3/uL (150-450); Red Blood Count 3.47 10^6/uL (3.63-4.92); Red Cell Distribution Width 17.3 % (12-17); White Blood Count 13.1 10^3/uL (3.8-11.8)
[2024-06-08 06:07] LABS: Calcium 8.9 mg/dL (8.6-10.3); Creatinine, Serum 1.04 mg/dL (0.51-0.95); Magnesium 1.6 mg/dL (1.9-2.7); Potassium 3.9 mmol/L (3.5-5.0); eGFR CKD-EPI 61.1 (>60)
[2024-06-08] MEDS ORDERED: Aspirin EC 81 mg TAB.EC (enteric coated) PO SCH (09:00)
[2024-06-08 12:38] LABS: Hematocrit 32.3 % (35-45); Hemoglobin 9.6 g/dL (11.5-14.3)
[2024-06-08] MEDS: Magnesium Sulfate 2 gm BAG 2 GM/50 ML BAG IVPB ONE (16:24)
[2024-06-08] MEDS: Magnesium Sulfate IV 1GM/100ML 1 GM/100 ML BAG IV ONE (17:38)
[2024-06-08] MEDS: cefTRIAXone 1 gm/50 mL D5W 1 GM/50 ML BAG IV SCH (17:56)
[2024-06-09 03:57] LABS: Hemoglobin 8.8 g/dL (11.5-14.3); Mean Corpuscular Hemoglobin 26.2 pg (27-33); Mean Corpuscular Hgb Conc 31.4 g/dL (31-36); Mean Corpuscular Volume 83.3 fL (80-97); Mean Platelet Volume 8.8 fL (7.5-11.2); Platelet Count 434 10^3/uL (150-450); Red Blood Count 3.36 10^6/uL (3.63-4.92); Red Cell Distribution Width 17.3 % (12-17); White Blood Count 19.1 10^3/uL (3.8-11.8)
[2024-06-09 04:17] LABS: Calcium 9.2 mg/dL (8.6-10.3); Creatinine, Serum 1.3 mg/dL (0.51-0.95); Magnesium 2.3 mg/dL (1.9-2.7); Potassium 4.1 mmol/L (3.5-5.0); eGFR CKD-EPI 46.8 (>60)
[2024-06-09 05:52] LABS: ABS Basophils 0.1 10^3/uL (0.0-0.1); ABS Eosinophils 0.4 10^3/uL (0.0-0.5); ABS Lymphocytes 0.7 10^3/uL (1.0-4.8); ABS Monocytes 1.6 10^3/uL (0.0-0.9); ABS Neutrophils 16.3 10^3/uL (1.5-7.6); Lymphocyte % 3.8 %
[2024-06-09 16:40] LABS: INR 1.46 (0.85-1.14)
[2024-06-10 06:40] LABS: Hematocrit 23.3 % (35-45); Hemoglobin 7.7 g/dL (11.5-14.3); Mean Corpuscular Hgb Conc 33.1 g/dL (31-36); Mean Corpuscular Volume 84.5 fL (80-97); Mean Platelet Volume 7.7 fL (7.5-11.2); Platelet Count 338 10^3/uL (150-450); Red Blood Count 2.76 10^6/uL (3.63-4.92); Red Cell Distribution Width 17.3 % (12-17); White Blood Count 11.8 10^3/uL (3.8-11.8)
[2024-06-10 06:55] LABS: Activated Partial Thrombo Time 27.8 seconds (26.0-38.0); INR 1.49 (0.85-1.14)
[2024-06-10 07:45] LABS: ABS Basophils 0.1 10^3/uL (0.0-0.1); ABS Eosinophils 0.3 10^3/uL (0.0-0.5); ABS Lymphocytes 0.6 10^3/uL (1.0-4.8); ABS Monocytes 1.5 10^3/uL (0.0-0.9); ABS Neutrophils 9.4 10^3/uL (1.5-7.6); ABS Nucleated RBC 0.02 10^3/ul; Anisocytosis 1+; Eosinophil % 2.9 %; Lymphocyte % 4.8 %; Nucleated Red Blood Cells % 0.2 %/100WBC (0.0-0.8); Polychromasia 1+
[2024-06-10 07:47] LABS: Calcium 8.8 mg/dL (8.6-10.3); Creatinine, Serum 1.32 mg/dL (0.51-0.95); Potassium 4.1 mmol/L (3.5-5.0); eGFR CKD-EPI 45.9 (>60)
[2024-06-10 08:37] LABS: Magnesium 2.1 mg/dL (1.9-2.7)
[2024-06-10] MEDS: fentaNYL 100 mcg/2 ml 50 MCG/ML VIAL ONE ×2 (11:55)
[2024-06-10 15:11] LABS: Budding Yeast Present /HPF (Absent); Urine Bacteria Absent /HPF (Absent); Urine Red Blood Cell 3+(>10/hpf) /HPF (0-Trace); Urine White Blood Cell 3+(>20/hpf) /HPF (0-Trace)
[2024-06-10 15:45] LABS: Urine Appearance Turbid; Urine Color Amber
[2024-06-10 15:46] LABS: Urine Bilirubin 1+ (Small) (Negative); Urine Blood 3+ (Large) (Negative); Urine Ketones Negative (Negative); Urine Nitrite Negative (Negative); Urine Protein 2+ (100 mg/dL) (Negative); Urine Specific Gravity 1.015 (1.005-1.030); Urine Urobilinogen 0.2 (Negative) (Negative)
[2024-06-10 18:04] LABS: Hematocrit 23.8 % (35-45); Hemoglobin 7.9 g/dL (11.5-14.3)
[2024-06-11] MEDS: cefTRIAXone 1 gm/50 mL D5W 1 GM/50 ML BAG IV SCH (01:09)
[2024-06-11 06:54] LABS: Hematocrit 22.9 % (35-45); Hemoglobin 7.5 g/dL (11.5-14.3); Mean Corpuscular Hgb Conc 32.9 g/dL (31-36); Mean Corpuscular Volume 85.1 fL (80-97); Mean Platelet Volume 8.1 fL (7.5-11.2); Platelet Count 318 10^3/uL (150-450); Red Blood Count 2.69 10^6/uL (3.63-4.92); Red Cell Distribution Width 17.5 % (12-17); White Blood Count 15.1 10^3/uL (3.8-11.8)
[2024-06-11 07:50] LABS: Calcium 8.8 mg/dL (8.6-10.3); Creatinine, Serum 1.16 mg/dL (0.51-0.95); Magnesium 1.8 mg/dL (1.9-2.7); Potassium 3.8 mmol/L (3.5-5.0); eGFR CKD-EPI 53.6 (>60)
[2024-06-11 09:09] LABS: ABS Lymphocytes 0.3 10^3/uL (1.0-4.8); ABS Neutrophils 13.8 10^3/uL (1.5-7.6); Anisocytosis 1+; Eosinophil % 0.1 %; Lymphocyte % 1.8 %; Polychromasia 1+
[2024-06-11] MEDS: Magnesium Sulfate 2 gm BAG 2 GM/50 ML BAG IVPB ONE (09:22)
[2024-06-11] MEDS: ceFAZolin 1 GM in Dextrose 1 GM/50 ML BAG IVPB SCH (09:54)
[2024-06-11] MEDS: Lactated Ringers 1000 ml BAG 1,000 ML IV SCH (16:51)
[2024-06-12 06:13] LABS: Hematocrit 22.6 % (35-45); Hemoglobin 7.4 g/dL (11.5-14.3); Mean Corpuscular Hemoglobin 27.8 pg (27-33); Mean Corpuscular Hgb Conc 32.6 g/dL (31-36); Mean Corpuscular Volume 85.5 fL (80-97); Mean Platelet Volume 7.9 fL (7.5-11.2); Platelet Count 270 10^3/uL (150-450); Red Blood Count 2.64 10^6/uL (3.63-4.92); Red Cell Distribution Width 17.6 % (12-17); White Blood Count 11.7 10^3/uL (3.8-11.8)
[2024-06-12 06:38] LABS: INR 1.38 (0.85-1.14)
[2024-06-12 07:11] LABS: Calcium 8.6 mg/dL (8.6-10.3); Creatinine, Serum 1.02 mg/dL (0.51-0.95); Magnesium 2.1 mg/dL (1.9-2.7); Potassium 3.8 mmol/L (3.5-5.0); eGFR CKD-EPI 62.6 (>60)
[2024-06-12 08:49] LABS: ABS Basophils 0.1 10^3/uL (0.0-0.1); ABS Eosinophils 0.2 10^3/uL (0.0-0.5); ABS Lymphocytes 0.5 10^3/uL (1.0-4.8); ABS Neutrophils 9.8 10^3/uL (1.5-7.6); ABS Nucleated RBC 0.01 10^3/ul; Anisocytosis 2+; Basophilic Stippling 1+; Lymphocyte % 4.6 %; Nucleated Red Blood Cells % 0.1 %/100WBC (0.0-0.8); Polychromasia 2+
[2024-06-12] MEDS: Lactated Ringers 1000 ml BAG 1,000 ML IV ONE (11:03)
[2024-06-12] MEDS: Albuterol/Ipratropium NEB.SOL (2.5/0.5 MG) 3 ML NEB.SOLN INH PRN (23:15)
[2024-06-13 08:52] LABS: Hematocrit 23.8 % (35-45); Hemoglobin 7.7 g/dL (11.5-14.3); Mean Corpuscular Hemoglobin 27.5 pg (27-33); Mean Corpuscular Hgb Conc 32.3 g/dL (31-36); Mean Corpuscular Volume 85.3 fL (80-97); Mean Platelet Volume 7.7 fL (7.5-11.2); Platelet Count 338 10^3/uL (150-450); White Blood Count 10.3 10^3/uL (3.8-11.8)
[2024-06-13 09:29] LABS: Calcium 8.3 mg/dL (8.6-10.3); Creatinine, Serum 1.04 mg/dL (0.51-0.95); Magnesium 1.8 mg/dL (1.9-2.7); Potassium 3.4 mmol/L (3.5-5.0); eGFR CKD-EPI 61.1 (>60)
[2024-06-13] MEDS: fentaNYL 100 mcg/2 ml 50 MCG/ML VIAL ONE (13:55)
[2024-06-13] MEDS: Albuterol/Ipratropium NEB.SOL (2.5/0.5 MG) 3 ML NEB.SOLN ONE (22:03)
[2024-06-14] MEDS ORDERED: Chlorhexidine MOUTHWASH 0.12% 15 ML UDC TOPICAL SCH (03:00)
[2024-06-14 08:44] LABS: Hemoglobin 7.5 g/dL (11.5-14.3); Mean Corpuscular Hemoglobin 27.1 pg (27-33); Mean Corpuscular Hgb Conc 31.4 g/dL (31-36); Mean Corpuscular Volume 86.1 fL (80-97); Mean Platelet Volume 8.1 fL (7.5-11.2); Platelet Count 303 10^3/uL (150-450); Red Blood Count 2.79 10^6/uL (3.63-4.92); Red Cell Distribution Width 17.9 % (12-17)
[2024-06-14 09:14] LABS: Calcium 8.3 mg/dL (8.6-10.3); Creatinine, Serum 0.79 mg/dL (0.51-0.95); Magnesium 1.6 mg/dL (1.9-2.7); Potassium 3.2 mmol/L (3.5-5.0); eGFR CKD-EPI 85.1 (>60)
[2024-06-14] MEDS: Midazolam 10 mg/10 ml VIAL 1 mg/ml 10 ml VIAL (10 mg) ONE (09:25)
[2024-06-14] MEDS: fentaNYL 100 mcg/2 ml 50 MCG/ML VIAL ONE (09:26)
[2024-06-14 09:28] LABS: ABS Basophils 0.1 10^3/uL (0.0-0.1); ABS Eosinophils 0.3 10^3/uL (0.0-0.5); ABS Monocytes 0.8 10^3/uL (0.0-0.9); ABS Neutrophils 8.9 10^3/uL (1.5-7.6); ABS Nucleated RBC 0.01 10^3/ul; Eosinophil % 2.6 %; Lymphocyte % 8.7 %; Nucleated Red Blood Cells % 0.1 %/100WBC (0.0-0.8)
[2024-06-14 09:30] LABS: Anisocytosis 1+; Polychromasia 2+
[2024-06-14] MEDS: Acetylcysteine ORAL SOL 200 mg/ml 30 ml VIAL ONE (09:46)
[2024-06-14] MEDS: fentaNYL 100 mcg/2 ml 50 MCG/ML VIAL IV SLOW PU ONE (09:49)
[2024-06-14] MEDS: Acetylcysteine INHALATION SOL 200 MG/ML NEB.SOLN 10 ML INH SCH ×2 (09:50→13:27)
[2024-06-14] MEDS: Magnesium Sulfate 2 gm BAG 2 GM/50 ML BAG IVPB ONE (11:36)
[2024-06-14] MEDS: KCL 20 MEQ/100 ML IVPREMIX 20 MEQ/100 ML BAG IV SCH (12:17)
[2024-06-14] MEDS: Magnesium Sulfate IV 1GM/100ML 1 GM/100 ML BAG IV ONE (13:42)
[2024-06-14 15:14] LABS: Hemoglobin 7.2 g/dL (11.5-14.3)
[2024-06-14] MEDS ORDERED: Hemorrhoidal OINT 1 TUBE PR PRN (18:23)
[2024-06-14] MEDS: Metoprolol Tartrate 5 mg VIAL 5 ml VIAL (1 mg/ml) IV SCH (20:45)
[2024-06-14] MEDS: Famotidine IV 10 MG/ML 2 ml VIAL (20 mg) IV SLOW PU SCH (20:45)
[2024-06-15 05:08] LABS: Hematocrit 23.3 % (35-45); Hemoglobin 7.6 g/dL (11.5-14.3); Mean Corpuscular Hemoglobin 28.3 pg (27-33); Mean Corpuscular Hgb Conc 32.5 g/dL (31-36); Mean Corpuscular Volume 86.9 fL (80-97); Mean Platelet Volume 7.8 fL (7.5-11.2); Platelet Count 302 10^3/uL (150-450); Red Blood Count 2.68 10^6/uL (3.63-4.92); Red Cell Distribution Width 18.7 % (12-17); White Blood Count 9.2 10^3/uL (3.8-11.8)
[2024-06-15 05:45] LABS: ABS Basophils 0.1 10^3/uL (0.0-0.1); ABS Eosinophils 0.3 10^3/uL (0.0-0.5); ABS Lymphocytes 0.9 10^3/uL (1.0-4.8); ABS Monocytes 0.6 10^3/uL (0.0-0.9); ABS Neutrophils 7.3 10^3/uL (1.5-7.6); ABS Nucleated RBC 0.01 10^3/ul; Eosinophil % 3.1 %; Lymphocyte % 9.3 %; Nucleated Red Blood Cells % 0.2 %/100WBC (0.0-0.8)
[2024-06-15 05:49] LABS: Calcium 8.2 mg/dL (8.6-10.3); Creatinine, Serum 0.69 mg/dL (0.51-0.95); Magnesium 2.1 mg/dL (1.9-2.7); Potassium 3.6 mmol/L (3.5-5.0); eGFR CKD-EPI 98.1 (>60)
[2024-06-15] MEDS: Furosemide 40 mg/4 ml IV VIAL IV ONE (07:37)
[2024-06-15] MEDS: KCL 20 MEQ/100 ML IVPREMIX 20 MEQ/100 ML BAG IV ONE (07:37)
[2024-06-15] MEDS ORDERED: oxyCODONE SR 10 mg TAB PO SCH (18:00)
[2024-06-16 04:57] LABS: Hematocrit 24.5 % (35-45); Hemoglobin 7.8 g/dL (11.5-14.3); Mean Corpuscular Hemoglobin 27.7 pg (27-33); Mean Corpuscular Hgb Conc 31.7 g/dL (31-36); Mean Corpuscular Volume 87.5 fL (80-97); Mean Platelet Volume 7.3 fL (7.5-11.2); Platelet Count 261 10^3/uL (150-450); Red Cell Distribution Width 18.3 % (12-17); White Blood Count 8.2 10^3/uL (3.8-11.8)
[2024-06-16 05:42] LABS: ABS Basophils 0.1 10^3/uL (0.0-0.1); ABS Eosinophils 0.4 10^3/uL (0.0-0.5); ABS Lymphocytes 0.6 10^3/uL (1.0-4.8); ABS Monocytes 0.5 10^3/uL (0.0-0.9); ABS Neutrophils 6.6 10^3/uL (1.5-7.6); ABS Nucleated RBC 0.04 10^3/ul; Anisocytosis 1+; Calcium 8.1 mg/dL (8.6-10.3); Creatinine, Serum 0.73 mg/dL (0.51-0.95); Eosinophil % 4.5 %; Lymphocyte % 7.6 %; Magnesium 1.8 mg/dL (1.9-2.7); Nucleated Red Blood Cells % 0.5 %/100WBC (0.0-0.8); Polychromasia 1+; Potassium 3.5 mmol/L (3.5-5.0); eGFR CKD-EPI 92.9 (>60)
[2024-06-16] MEDS: Furosemide 40 mg/4 ml IV VIAL IV ONE (08:24)
[2024-06-16] MEDS: Magnesium Sulfate 2 gm BAG 2 GM/50 ML BAG IVPB ONE (08:25)
[2024-06-16] MEDS: Anidulafungin 100 MG in NS 0.9% 100 ml BAG 100 ML IVPB ONE (11:29)
[2024-06-16] MEDS ORDERED: NS 0.9% IVPB SCH (12:00)
[2024-06-16] MEDS ORDERED: ANIDULAFUNGIN IVPB SCH (12:00)
[2024-06-16] MEDS: Furosemide 40 mg/4 ml IV VIAL IV SLOW PU ONE (13:25)
[2024-06-16] MEDS: Anidulafungin 200 MG in NS 0.9% 250 ml 200 ML IVPB ONE (13:25)
[2024-06-16 19:17] LABS: Calcium 8.1 mg/dL (8.6-10.3); Creatinine, Serum 0.76 mg/dL (0.51-0.95); Potassium 3.5 mmol/L (3.5-5.0); eGFR CKD-EPI 88.5 (>60)
[2024-06-17 04:06] LABS: ABS Basophils 0.1 10^3/uL (0.0-0.1); ABS Eosinophils 0.3 10^3/uL (0.0-0.5); ABS Lymphocytes 0.6 10^3/uL (1.0-4.8); ABS Monocytes 0.6 10^3/uL (0.0-0.9); ABS Neutrophils 6.8 10^3/uL (1.5-7.6); ABS Nucleated RBC 0.01 10^3/ul; Eosinophil % 3.8 %; Hematocrit 25.1 % (35-45); Hemoglobin 8.1 g/dL (11.5-14.3); Lymphocyte % 7.1 %; Mean Corpuscular Hgb Conc 32.4 g/dL (31-36); Mean Corpuscular Volume 86.4 fL (80-97); Mean Platelet Volume 7.7 fL (7.5-11.2); Nucleated Red Blood Cells % 0.2 %/100WBC (0.0-0.8); Platelet Count 258 10^3/uL (150-450); Red Cell Distribution Width 19.9 % (12-17); White Blood Count 8.5 10^3/uL (3.8-11.8)
[2024-06-17 04:49] LABS: Calcium 8.4 mg/dL (8.6-10.3); Creatinine, Serum 0.81 mg/dL (0.51-0.95); Magnesium 1.8 mg/dL (1.9-2.7); Potassium 3.2 mmol/L (3.5-5.0)
[2024-06-17] MEDS: Magnesium Sulfate 2 gm BAG 2 GM/50 ML BAG IVPB ONE ×2 (05:19→09:53)
[2024-06-17] MEDS: KCL 20 MEQ/100 ML IVPREMIX 20 MEQ/100 ML BAG IV SCH ×2 (06:45→11:27)
[2024-06-17] MEDS: Iohexol 350 (CONTRAST) 500 ML MDV IV ONE (10:38)
[2024-06-17] MEDS: Iodixanol 320 (CONTRAST) 100 ML SDV IV ONE (10:42)
[2024-06-17] MEDS: Furosemide 40 mg/4 ml IV VIAL IV ONE (11:26)
[2024-06-17] MEDS ORDERED: Anidulafungin 200 MG in NS 0.9% 250 ml 200 ML IVPB ONE (11:27)
[2024-06-17] MEDS: Midazolam 10 mg/10 ml VIAL 1 mg/ml 10 ml VIAL (10 mg) IV SLOW PU ONE (12:00)
[2024-06-17] MEDS: Midazolam 10 mg/10 ml VIAL 1 mg/ml 10 ml VIAL (10 mg) ONE (12:08)
[2024-06-17] MEDS: Cefepime 2 GM in Dextrose 2 GM/50 ML BAG IV SCH (12:10)
[2024-06-17] MEDS: NS 0.9% IVPB SCH (12:10)
[2024-06-17] MEDS: ANIDULAFUNGIN IVPB SCH (12:10)
[2024-06-17] MEDS: NS 0.9% 250 ml 250 ML IV ONE (12:36)
[2024-06-17] MEDS: Pantoprazole VIAL 40 MG VIAL IV SCH (12:38)
[2024-06-17] MEDS ORDERED: Sulfur Hexaflouride MICROSPHR 25 MG VIAL IV PRN (13:37)
[2024-06-17 14:03] LABS: ABS Eosinophils 0.2 10^3/uL (0.0-0.5); ABS Lymphocytes 0.7 10^3/uL (1.0-4.8); ABS Monocytes 0.5 10^3/uL (0.0-0.9); ABS Neutrophils 7.5 10^3/uL (1.5-7.6); ABS Nucleated RBC 0.01 10^3/ul; Eosinophil % 2.5 %; Hematocrit 26.6 % (35-45); Hemoglobin 8.4 g/dL (11.5-14.3); Lymphocyte % 7.4 %; Mean Corpuscular Hemoglobin 27.5 pg (27-33); Mean Corpuscular Hgb Conc 31.4 g/dL (31-36); Mean Corpuscular Volume 87.5 fL (80-97); Mean Platelet Volume 7.5 fL (7.5-11.2); Nucleated Red Blood Cells % 0.2 %/100WBC (0.0-0.8); Platelet Count 283 10^3/uL (150-450); Red Blood Count 3.03 10^6/uL (3.63-4.92); Red Cell Distribution Width 19.9 % (12-17)
[2024-06-17 14:24] LABS: Creatinine, Serum 0.68 mg/dL (0.51-0.95); eGFR CKD-EPI 98.4 (>60)
[2024-06-17] MEDS: Heparin DRIP 25,000 UNITS BAG 25,000 UNITS/250 ML BAG IV SCH (14:30)
[2024-06-17] MEDS: Acetylcysteine ORAL SOL 200 mg/ml 30 ml VIAL ONE (18:51)
[2024-06-17] MEDS: Heparin 5000 UNITS/ML 1 mL VIAL IV SCH (20:41)
[2024-06-18 02:20] LABS: ABS Basophils 0.1 10^3/uL (0.0-0.1); ABS Eosinophils 0.4 10^3/uL (0.0-0.5); ABS Lymphocytes 0.7 10^3/uL (1.0-4.8); ABS Monocytes 0.6 10^3/uL (0.0-0.9); ABS Neutrophils 9.4 10^3/uL (1.5-7.6); ABS Nucleated RBC 0.01 10^3/ul; Eosinophil % 3.2 %; Hematocrit 26.2 % (35-45); Hemoglobin 8.3 g/dL (11.5-14.3); Lymphocyte % 5.9 %; Mean Corpuscular Hemoglobin 27.6 pg (27-33); Mean Corpuscular Hgb Conc 31.6 g/dL (31-36); Mean Corpuscular Volume 87.4 fL (80-97); Mean Platelet Volume 7.9 fL (7.5-11.2); Nucleated Red Blood Cells % 0.1 %/100WBC (0.0-0.8); Platelet Count 297 10^3/uL (150-450); Red Blood Count 2.99 10^6/uL (3.63-4.92); Red Cell Distribution Width 20.6 % (12-17); White Blood Count 11.1 10^3/uL (3.8-11.8)
[2024-06-18] MEDS: Magnesium Sulfate 2 gm BAG 2 GM/50 ML BAG IVPB ONE (05:16)
[2024-06-18 05:50] LABS: Resp Rate 16
[2024-06-18 05:52] LABS: PCO2 Arterial 53 mmHg (35-45); PO2 Arterial 126 mmHg (80-100)
[2024-06-18] MEDS: KCL 20 MEQ/100 ML IVPREMIX 20 MEQ/100 ML BAG IV SCH (06:21)
[2024-06-18] MEDS: Magnesium Sulfate 2 gm BAG 2 GM/50 ML BAG ONE (06:29)
[2024-06-18] MEDS: Metoprolol Tartrate 5 mg VIAL 5 ml VIAL (1 mg/ml) IV SCH (07:54)
[2024-06-18] MEDS ORDERED: Metoprolol Tartrate 5 mg VIAL 5 ml VIAL (1 mg/ml) IV PRN (08:00)
[2024-06-18] MEDS ORDERED: Morphine 2 MG/ML SYRINGE IV PRN (08:19)
[2024-06-18 10:00] LABS: Calcium 8.2 mg/dL (8.6-10.3); Creatinine, Serum 0.67 mg/dL (0.51-0.95); Magnesium 2.9 mg/dL (1.9-2.7); Phosphorus 3.5 mg/dL (2.5-5.0); Potassium 3.9 mmol/L (3.5-5.0); eGFR CKD-EPI 98.8 (>60)
[2024-06-18] MEDS: Lidocaine 1% MPF 5 ML VIAL INJ ONE (17:08)
[2024-06-19 06:41] LABS: ABS Basophils 0.1 10^3/uL (0.0-0.1); ABS Eosinophils 0.4 10^3/uL (0.0-0.5); ABS Lymphocytes 0.5 10^3/uL (1.0-4.8); ABS Monocytes 0.7 10^3/uL (0.0-0.9); ABS Neutrophils 6.6 10^3/uL (1.5-7.6); ABS Nucleated RBC 0.01 10^3/ul; Eosinophil % 5.2 %; Hematocrit 25.7 % (35-45); Hemoglobin 8.3 g/dL (11.5-14.3); Mean Corpuscular Hemoglobin 28.3 pg (27-33); Mean Corpuscular Hgb Conc 32.4 g/dL (31-36); Mean Corpuscular Volume 87.2 fL (80-97); Nucleated Red Blood Cells % 0.1 %/100WBC (0.0-0.8); Platelet Count 312 10^3/uL (150-450); Red Blood Count 2.95 10^6/uL (3.63-4.92); Red Cell Distribution Width 20.9 % (12-17); White Blood Count 8.3 10^3/uL (3.8-11.8)
[2024-06-19 07:03] LABS: Anion Gap 7 mmol/L (2-16); Blood Urea Nitrogen 18 mg/dL (6-24); CO2 Carbon Dioxide 37 mmol/L (22-32); Calcium 8.1 mg/dL (8.6-10.3); Chloride 94 mmol/L (101-111); Creatinine, Serum 0.62 mg/dL (0.51-0.95); Glucose 91 mg/dL (70-100); Sodium 138 mmol/L (135-145); eGFR CKD-EPI 100.6 (>60)
[2024-06-19] MEDS: Furosemide 40 mg/4 ml IV VIAL IV ONE (09:54)
[2024-06-19 10:58] LABS: Magnesium 2.2 mg/dL (1.9-2.7)
[2024-06-20 04:10] LABS: ABS Basophils 0.1 10^3/uL (0.0-0.1); ABS Eosinophils 0.2 10^3/uL (0.0-0.5); ABS Lymphocytes 0.6 10^3/uL (1.0-4.8); ABS Monocytes 0.7 10^3/uL (0.0-0.9); Eosinophil % 2.7 %; Lymphocyte % 6.8 %; Mean Corpuscular Hemoglobin 27.7 pg (27-33); Mean Corpuscular Hgb Conc 32.1 g/dL (31-36); Mean Corpuscular Volume 86.3 fL (80-97); Mean Platelet Volume 7.6 fL (7.5-11.2); Platelet Count 261 10^3/uL (150-450); Red Blood Count 2.89 10^6/uL (3.63-4.92); White Blood Count 8.6 10^3/uL (3.8-11.8)
[2024-06-20 05:12] LABS: Calcium 8.4 mg/dL (8.6-10.3); Creatinine, Serum 0.7 mg/dL (0.51-0.95); Magnesium 1.9 mg/dL (1.9-2.7); Potassium 3.7 mmol/L (3.5-5.0); eGFR CKD-EPI 97.7 (>60)
[2024-06-20] MEDS: Furosemide 40 mg/4 ml IV VIAL IV ONE (09:24)
[2024-06-20] MEDS: TPN 24 HR with Dextrose 40% Water 500 ML, Amino Acid Infusion 10% 850 ML, Sterile Water... CENT\\PICC SCH (13:15)
[2024-06-20 16:34] LABS: Calcium 8.7 mg/dL (8.6-10.3); Creatinine, Serum 0.68 mg/dL (0.51-0.95); Magnesium 1.8 mg/dL (1.9-2.7); Potassium 3.6 mmol/L (3.5-5.0); eGFR CKD-EPI 98.4 (>60)
[2024-06-20] MEDS: Magnesium Sulfate 2 gm BAG 2 GM/50 ML BAG IVPB ONE (18:18)
[2024-06-20] MEDS ORDERED: Dextrose 50% Syringe 50 ml 25 GM/50 ML SYRINGE IV PUSH PRN (19:02)
[2024-06-20] MEDS: KCL 20 MEQ/100 ML IVPREMIX 20 MEQ/100 ML BAG IV ONE (19:38)
[2024-06-21 05:04] LABS: ABS Eosinophils 0.4 10^3/uL (0.0-0.5); ABS Lymphocytes 0.5 10^3/uL (1.0-4.8); ABS Monocytes 0.6 10^3/uL (0.0-0.9); ABS Neutrophils 5.1 10^3/uL (1.5-7.6); Eosinophil % 5.7 %; Hematocrit 24.8 % (35-45); Hemoglobin 8.1 g/dL (11.5-14.3); Lymphocyte % 7.4 %; Mean Corpuscular Hemoglobin 28.3 pg (27-33); Mean Corpuscular Hgb Conc 32.5 g/dL (31-36); Mean Corpuscular Volume 87.1 fL (80-97); Mean Platelet Volume 7.7 fL (7.5-11.2); Platelet Count 279 10^3/uL (150-450); Red Blood Count 2.85 10^6/uL (3.63-4.92); Red Cell Distribution Width 20.1 % (12-17); White Blood Count 6.6 10^3/uL (3.8-11.8)
[2024-06-21 05:58] LABS: ALT < 3 U/L (7-52); AST 20 U/L (13-39); Albumin 2.7 g/dL (3.2-5.2); Albumin/Globulin Ratio 0.9 (1-3); Alkaline Phosphatase 130 U/L (35-149); Anion Gap 4 mmol/L (2-16); Blood Urea Nitrogen 18 mg/dL (6-24); CO2 Carbon Dioxide 36 mmol/L (22-32); Chloride 98 mmol/L (101-111); Cholesterol 163 mg/dL; Creatinine, Serum 0.61 mg/dL (0.51-0.95); Globulin 3.1 g/dL (2-4); Glucose 129 mg/dL (70-100); Magnesium 2.2 mg/dL (1.9-2.7); Phosphorus 2.4 mg/dL (2.5-5.0); Potassium 3.6 mmol/L (3.5-5.0); Prealbumin 9 mg/dL (18-38); Sodium 138 mmol/L (135-145); Total Bilirubin 1.1 mg/dL (0.2-1.0); Total Protein 5.8 g/dL (6.4-8.9); Triglycerides 200 mg/dL
[2024-06-21] MEDS ORDERED: KCL 20 MEQ/100 ML IVPREMIX 20 MEQ/100 ML BAG IV SCH (08:00)
[2024-06-21] MEDS: Potassium Phosphate IV 15 MMOL in NS 0.9% 250 ml 250 ML IVPB ONE (09:33)
[2024-06-21] MEDS: Furosemide 40 mg/4 ml IV VIAL IV SLOW PU ONE (09:40)
[2024-06-21] MEDS ORDERED: Senna TAB 8.6 mg TAB PO PRN (09:45)
[2024-06-21] MEDS ORDERED: Polyethylene Glycol 3350 17 GM PACKET PO PRN (09:45)
[2024-06-21] MEDS: TPN 24 HR with Dextrose 40% Water 500 ML, Amino Acid Infusion 10% 850 ML, Sterile Water... CENT\\PICC SCH (17:09)
[2024-06-21] MEDS: Magnesium Hydroxide LIQ 30 ML UDC PO SCH (19:48)
[2024-06-22 05:15] LABS: ABS Basophils 0.1 10^3/uL (0.0-0.1); ABS Eosinophils 0.4 10^3/uL (0.0-0.5); ABS Lymphocytes 0.5 10^3/uL (1.0-4.8); ABS Monocytes 0.8 10^3/uL (0.0-0.9); ABS Neutrophils 6.5 10^3/uL (1.5-7.6); Eosinophil % 4.7 %; Hematocrit 25.6 % (35-45); Hemoglobin 8.1 g/dL (11.5-14.3); Lymphocyte % 6.3 %; Mean Corpuscular Hemoglobin 27.7 pg (27-33); Mean Corpuscular Hgb Conc 31.8 g/dL (31-36); Mean Corpuscular Volume 87.1 fL (80-97); Mean Platelet Volume 7.2 fL (7.5-11.2); Platelet Count 299 10^3/uL (150-450); Red Blood Count 2.94 10^6/uL (3.63-4.92); Red Cell Distribution Width 19.2 % (12-17); White Blood Count 8.4 10^3/uL (3.8-11.8)
[2024-06-22 06:10] LABS: Calcium 8.7 mg/dL (8.6-10.3); Creatinine, Serum 0.65 mg/dL (0.51-0.95); HDL Cholesterol 38.7 mg/dL; Magnesium 1.9 mg/dL (1.9-2.7); Phosphorus 2.7 mg/dL (2.5-5.0); Potassium 4.1 mmol/L (3.5-5.0); eGFR CKD-EPI 99.5 (>60)
[2024-06-22] MEDS: Furosemide 40 mg/4 ml IV VIAL IV SLOW PU SCH (08:14)
[2024-06-22] MEDS: Scopolamine 1 mg/72hr PATCH TRANSDERM SCH (11:18)
[2024-06-23 04:34] LABS: Hematocrit 26.3 % (35-45); Hemoglobin 8.3 g/dL (11.5-14.3); Mean Corpuscular Hemoglobin 27.7 pg (27-33); Mean Corpuscular Hgb Conc 31.7 g/dL (31-36); Mean Corpuscular Volume 87.5 fL (80-97); Mean Platelet Volume 7.7 fL (7.5-11.2); Platelet Count 314 10^3/uL (150-450); Red Cell Distribution Width 19.6 % (12-17); White Blood Count 7.2 10^3/uL (3.8-11.8)
[2024-06-23 05:19] LABS: ABS Basophils 0.1 10^3/uL (0.0-0.1); ABS Eosinophils 0.4 10^3/uL (0.0-0.5); ABS Lymphocytes 0.6 10^3/uL (1.0-4.8); ABS Monocytes 0.7 10^3/uL (0.0-0.9); ABS Neutrophils 5.3 10^3/uL (1.5-7.6); Anisocytosis 1+; Lymphocyte % 8.6 %; Polychromasia 1+
[2024-06-23 05:58] LABS: Calcium 9.4 mg/dL (8.6-10.3); Creatinine, Serum 0.63 mg/dL (0.51-0.95); Magnesium 1.9 mg/dL (1.9-2.7); Phosphorus 3.2 mg/dL (2.5-5.0); Potassium 4.4 mmol/L (3.5-5.0); eGFR CKD-EPI 100.2 (>60)
[2024-06-23] MEDS ORDERED: Lorazepam PYXIS KEY PRN ×2 (15:31→22:56)
[2024-06-23] MEDS: LORazepam 2 mg VIAL 1 ml IV PUSH ONE ×3 (15:43→23:03)
[2024-06-24 04:23] LABS: ABS Basophils 0.1 10^3/uL (0.0-0.1); ABS Eosinophils 0.4 10^3/uL (0.0-0.5); ABS Lymphocytes 0.5 10^3/uL (1.0-4.8); ABS Monocytes 0.8 10^3/uL (0.0-0.9); ABS Neutrophils 5.1 10^3/uL (1.5-7.6); Eosinophil % 5.6 %; Hematocrit 27.5 % (35-45); Hemoglobin 8.9 g/dL (11.5-14.3); Lymphocyte % 7.9 %; Mean Corpuscular Hemoglobin 28.1 pg (27-33); Mean Corpuscular Hgb Conc 32.3 g/dL (31-36); Mean Platelet Volume 7.6 fL (7.5-11.2); Platelet Count 340 10^3/uL (150-450); Red Blood Count 3.16 10^6/uL (3.63-4.92); Red Cell Distribution Width 19.2 % (12-17); White Blood Count 6.9 10^3/uL (3.8-11.8)
[2024-06-24 04:34] LABS: Calcium 9.4 mg/dL (8.6-10.3); Creatinine, Serum 0.69 mg/dL (0.51-0.95); Magnesium 1.7 mg/dL (1.9-2.7); Phosphorus 3.8 mg/dL (2.5-5.0); Potassium 4.3 mmol/L (3.5-5.0); eGFR CKD-EPI 98.1 (>60)
[2024-06-24] MEDS ORDERED: LORazepam 2 mg VIAL 1 ml IV PUSH PRN (08:09)
[2024-06-24] MEDS ORDERED: Lorazepam PYXIS KEY PRN (08:09)
[2024-06-24] MEDS: LORazepam 2 mg VIAL 1 ml IV PUSH SCH ×2 (15:33→18:21)
[2024-06-24] MEDS: Morphine 10 MG/ML VIAL (1 ml) IV ONE ×2 (15:33→18:13)
[2024-06-24] MEDS: Morphine 10 MG/ML VIAL (1 mL) 100 MG in NS 0.9% 100 ml BAG 90 ML IV SCH ×2 (15:33→18:11)
[2024-06-24] MEDS: LORazepam 2 mg VIAL 1 ml IV PUSH PRN ×2 (17:51→18:12)
[2024-06-24 20:48] VITALS: BP 58/32
[2024-06-24] MEDS: Morphine 2 MG/ML SYRINGE IV PRN (21:48)
[2024-06-24] MEDS: Atropine 1% (ORAL/SL) 15 ML BTL SL PRN (22:04)
== END 2024-06-25 02:53 | disposition expired | DRG 207 ==
LOC: ED 11:38 → SUATTDRO 20:22 → EDHOLD 20:22 → ICU 20:56 → SSU 05-26 10:57 → ICU 05-29 10:00 → SSU 06-03 15:06 → ICU 06-14 02:06
PROVIDERS: ADMIT Internal Medicine; ATTEND Internal Medicine Critical Care Medicine